=== PATIENT | male | born 1935 | race African-American/Black ===

== ENCOUNTER 2017-09-13 15:32 | Inpatient (IN) | payer MEDICARE ==
[2017-09-13] VITALS (15 sets, daily range): BP systolic 50–123; BP diastolic 29–77
[~2017-09-13] VITALS: Ht 172.7 cm; Wt 77.1 kg
[2017-09-13] MEDS ORDERED: Pantoprazole 80 MG in NS 250 ML IV ONE (15:45)
[2017-09-13] MEDS ORDERED: Pantoprazole Inj IVP ONE (15:45)
--- NOTE | 2017-09-13 15:45 | Emergency Room Report ---
History of Present Illness General Chief Complaint: Dyspnea/Respdistress Source: Medical Record, EMS Present Illness HPI All HPI from paperwork SNF Alleging hypoxia to 80s, and coffee-ground emesis Past medical history: Very significant list, includes anemia of chronic disease and diabetes, CKD, dementia, urinary retention List of medications include aspirin and no other a.c. HPI otherwise limited Recent admission in [facility] for urosepsis Allergies: Coded Allergies: LISINOPRIL (Verified Allergy, Unknown, 09/13/17) [id number] REDUCTASE INHIBITOR (Verified Allergy, Unknown, 09/13/17) Patient History Past Medical History: other - see hpi Past Surgical History: unable to obtain Pertinent Family History: unable to obtain Social History: Denies: smoking, alcohol use, drug use Immunizations: UTD Reviewed Nursing Documentation: PMH: Agreed, PSxH: Agreed Review of Systems All Other Systems: negative except mentioned in HPI Physical Exam Vital Signs Date Time Temp Pulse Resp B/P (MAP) Pulse Ox O2 Delivery O2 Flow Rate FiO2 09/13/17 15:24 96.4 76 28 90/28 96 Non-Rebreather 15.0 Sp02 EP Interpretation: reviewed, normal General Appearance: normal inspection, well appearing, no apparent distress, alert, GCS 15, non-toxic, other - head contorted to right side, right facial droop, coffee ground emesis oozing from right side of mouth Head: normocephalic, atraumatic Eyes: bilateral eye PERRL, bilateral eye EOMI ENT: normal ENT inspection, hearing grossly normal, normal pharynx, no angioedema, normal voice, TMs + canals normal, uvula midline, moist mucus membranes Neck: normal inspection, full range of motion, supple, thyroid normal, no meningismus, no bony tend Respiratory: normal inspection, lungs clear, normal breath sounds, no rhonchi, no respiratory distress, no retraction, no accessory muscle use, no wheezing, speaking full sentences Cardiovascular #1: regular rate, rhythm, no edema, no JVD, normal capillary refill Gastrointestinal: normal inspection, normal bowel sounds, non tender, soft, no mass, no peritonitis, non-distended, no guarding, no hernia, no pulsatile mass Genitourinary: no CVA tenderness Musculoskeletal: normal inspection, back normal, normal range of motion, no calf tenderness, pelvis stable, Clarisse's Sign negative, other - Bilateral lower extremities contorted to right Neurologic: normal inspection, alert, oriented x3, responsive, frame catcher III-XII nml as tested, motor strength/tone normal, cerebellar normal, normal gait, speech normal Psychiatric: normal inspection, judgement/insight normal, mood/affect normal, no suicidal/homicidal ideation, no delusions Skin: normal inspection, normal color, no rash Lymphatic: normal inspection, no adenopathy Procedures Critical Care Time Critical Care Time CC time 45 min Critical care time endorsed for this patient for ?sepsis, hypotension, upper GI bleed Critical care time includes review of laboratory tests, imaging, review of EMR, review of paperwork from SNF (if available), discussion with patient and family (if available), review of code status/POLS (if available). Critical care time also likely includes assessment of fluid status, stabilization of vital signs, selection and dosing of appropriate antibiotics, selection and dosing of Aspirin/Plavix/Heparin/Lovenox, discussion with PMD/ attending hospitalist/java tech. Critical care time does not include any procedures which are documented elsewhere in this EMR. Central Line Central Line : Consent: Emergent Central Line Lumen: triple Maximal Sterile Barrier Tech: yes cap, yes mask, yes sterile gown, yes sterile gloves, yes large sterile sheet, yes hand hygiene, yes chlorhexidine prep No Max Barrier Tech Because: emergency insertion Central Line Postion: internal jugular (L) Complications: none Central Line Post Position: sutured, good blood return, position confirmed w / CXR Attempts: One Patient Tolerated: Well Complications: None Intubation Intubation : Consent: Emergent Intubation Method: orotracheal Tube Size (cm): 7.5 Medications: Etomidate, Rocuronium Breath Sounds after Intubation: equal Intubation Complications: vomited Post Intubation Xray: Yes Attempts: One Patient Tolerated: Well Complications: None Medical Decision Making Diagnostic Impression: Primary Impression: Coffee ground emesis Additional Impressions: Hypotension Qualified Codes: I95.9 - Hypotension, unspecified Upper GI bleed Sepsis Qualified Codes: A41.9 - Sepsis, unspecified organism MOJGAN (acute kidney injury) CKD (chronic kidney disease) Qualified Codes: N18.9 - Chronic kidney disease, unspecified ER Course 82-year-old male with continued coffee-ground emesis and hypotension in the ER not responding to fluid bolus Was intubated for airway protection hemoglobin stable, INR is ganesh Mild MOJGAN on CKD 1.5L Fluid bolus given how patient developed crackles on exam, unknown EF, concern for fluid overload so IVF bolus was discontinued, and central line placed for continued hypotension, levophed pressors started Patient also given Protonix bolus and started on protonic prescription for upper GI bleed Questionable sepsis given leukopenia, hypotension, and chest x-ray read by stat rat for bilateral infiltrates, right greater than left; blood cultures pending, empiric antibiotics given Possible the patient also aspirated ICU admission to Dr Springer at 7pm Angel approved for admission here, please see my call to Angel Woodall with authorization number EKG Diagnostic Results Rate: normal Rhythm: NSR ST Segments: no acute changes ASA given to the pt in ED: No Rhythm Strip Diag. Results EP Interpretation: yes Rate: 76 Rhythm: NSR, no PVC's, no ectopy Chest X-Ray Diagnostic Results Chest X-Ray Diagnostic Results : Chest X-Ray Ordered: Yes # of Views/Limited/Complete: 1 View Indication: Other - Hypoxia EP Interpretation: Yes PA Xray: Interpretation reviewed Impression: Other - Right sided infiltrate Electronically Signed by: Dr Herson Farrell MD Last Vital Signs Date Time Temp Pulse Resp B/P (MAP) Pulse Ox O2 Delivery O2 Flow Rate FiO2 09/13/17 15:24 96.4 76 28 90/28 96 Non-Rebreather 15.0 Status: improved Disposition: ADMITTED INPATIENT Condition: Critical HERSON FARRELL M.D. Sep 13, 2017 15:44
[2017-09-13] MEDS ORDERED: Pantoprazole Inj ONE (16:26)
[2017-09-13 16:31] LABS: BASOPHILS % (AUTO) 1.2 % (0.0-2.0); EOSINOPHILS % (AUTO) 0.7 % (0.0-3.0); HEMATOCRIT 31.7 % (42.0-52.0); MEAN CORPUSCULAR VOLUME 100 FL (80-99); MONOCYTES % (AUTO) 3.1 % (1.0-10.0); PLATELET COUNT 231 K/UL (150-450); RED BLOOD COUNT 3.19 M/UL (4.70-6.10); RED CELL DISTRIBUTION WIDTH 15.9 % (11.6-14.8); WHITE BLOOD COUNT 3.1 K/UL (4.8-10.8)
[2017-09-13 16:36] LABS: INR 1.1 (0.9-1.1)
[2017-09-13] MEDS ORDERED: EZETIMIBE10 MG PO (16:56)
[2017-09-13] MEDS ORDERED: CEFAZOLIN2 GM/100 M IV (16:56)
[2017-09-13] MEDS ORDERED: LUMIGAN2.5 ML BOTH EYES (16:56)
[2017-09-13] MEDS ORDERED: AMLODIPINE BESY10 MG ORAL (16:56)
[2017-09-13] MEDS ORDERED: FUROSEMIDE40 MG ORAL (16:56)
[2017-09-13] MEDS ORDERED: MIRTAZAPINE7.5 MG ORAL (16:56)
[2017-09-13] MEDS ORDERED: ASPIR 8181 MG ORAL (16:56)
[2017-09-13] MEDS ORDERED: HYDRALAZINE HCL50 MG ORAL (16:56)
[2017-09-13] MEDS ORDERED: TUSSIN100 MG/51 PO (16:56)
[2017-09-13] MEDS ORDERED: Sodium Chloride 500ML 500 ML IV ONE (17:00)
[2017-09-13 17:07] LABS: ANION GAP 8 mmol/L (5-15); BLOOD UREA NITROGEN 51 mg/dL (7-18); CALCIUM 7.9 MG/DL (8.5-10.1); CARBON DIOXIDE 28 MMOL/L (21-32); CHLORIDE 117 MMOL/L (98-107); POTASSIUM 3.8 MMOL/L (3.5-5.1); SODIUM 153 MMOL/L (136-145)
[2017-09-13 17:35] LABS: ALANINE AMINOTRANSFERASE 34 U/L (12-78); ALBUMIN 1.8 G/DL (3.4-5.0); ALBUMIN/GLOBULIN RATIO 0.5 (1.0-2.7); ALKALINE PHOSPHATASE 84 U/L (46-116); ASPARTATE AMINO TRANSFERASE 32 U/L (15-37); BILIRUBIN,TOTAL 0.3 MG/DL (0.2-1.0); CKMB 6.2 NG/ML (0.0-3.6); CREATINE KINASE 109 U/L (26-308)
[2017-09-13] MEDS ORDERED: Zemuron 50mg/5ml Inj IV ONE ×2 (17:45→22:44)
[2017-09-13] MEDS ORDERED: Etomidate 40mg/20ml Inj IV ONE ×2 (17:45→22:44)
[2017-09-13] MEDS ORDERED: D5W 275 ML ONE (18:00)
[2017-09-13] MEDS ORDERED: Levophed 4mg/4mL Inj IV ONE ×2 (18:00→23:57)
[2017-09-13] MEDS ORDERED: Tubing IV Cassette IV ONE (19:32)
--- NOTE | 2017-09-13 20:28 | History & Physical ---
History and Physical History & Physicial 82 year old male with dementia presents with GIB, requiring intubation. Patient with unknown heart status. patient with low hemoglobin. Care discussed with ER MD and patient currently on the ventilator. Patient with hypotension with concern for sepsis. Patient given antibiotics empiric and cultures obtained. PMH dementia CKD hypertension MEDS/ALLERGIES noted PHYSICAL WDWN NAD coarse breath sounds [id number] without MRG reduced bowel sounds nontender no CCE reduced LOC Labs Test 09/13/17 16:00 09/13/17 20:15 White Blood Count 3.1 K/UL (4.8-10.8) Red Blood Count 3.19 M/UL (4.70-6.10) Hemoglobin 10.0 G/DL (14.2-18.0) Hematocrit 31.7 % (42.0-52.0) Mean Corpuscular Volume 100 FL (80-99) Mean Corpuscular Hemoglobin 31.3 PG (27.0-31.0) Mean Corpuscular Hemoglobin Concent 31.4 G/DL (32.0-36.0) Red Cell Distribution Width 15.9 % (11.6-14.8) Platelet Count 231 K/UL (150-450) Mean Platelet Volume 9.6 FL (6.5-10.1) Neutrophils (%) (Auto) 71.0 % (45.0-75.0) Lymphocytes (%) (Auto) 24.0 % (20.0-45.0) Monocytes (%) (Auto) 3.1 % (1.0-10.0) Eosinophils (%) (Auto) 0.7 % (0.0-3.0) Basophils (%) (Auto) 1.2 % (0.0-2.0) Prothrombin Time 11.3 SEC (9.30-11.50) Prothromb Time International Ratio 1.1 (0.9-1.1) Sodium Level 153 MMOL/L (136-145) Potassium Level 3.8 MMOL/L (3.5-5.1) Chloride Level 117 MMOL/L (98-107) Carbon Dioxide Level 28 MMOL/L (21-32) Anion Gap 8 mmol/L (5-15) Blood Urea Nitrogen 51 mg/dL (7-18) Creatinine 2.0 MG/DL (0.55-1.30) Estimat Glomerular Filtration Rate mL/min (>60) Glucose Level 153 MG/DL (74-106) Lactic Acid Level 3.10 mmol/L (0.66-2.22) Calcium Level 7.9 MG/DL (8.5-10.1) Total Bilirubin 0.3 MG/DL (0.2-1.0) Aspartate Amino Transf (AST/SGOT) 32 U/L (15-37) Alanine Aminotransferase (ALT/SGPT) 34 U/L (12-78) Alkaline Phosphatase 84 U/L (46-116) Total Creatine Kinase 109 U/L (26-308) Creatine Kinase MB 6.2 NG/ML (0.0-3.6) Creatine Kinase MB Relative Index 5.6 Troponin I 0.012 ng/mL (0.000-0.056) Total Protein 5.6 G/DL (6.4-8.2) Albumin 1.8 G/DL (3.4-5.0) Globulin 3.8 g/dL Albumin/Globulin Ratio 0.5 (1.0-2.7) IMPRESSION GIB respiratory failure pneumonia CKD anemia hypernatremia hypotension possible sepsis PLAN monitor protonix IV GI evaluation IV antibiotics vent support and monitor ABG monitor and avoid excessive hydration guarded ÁNGEL LAO Sep 13, 2017 20:28
[2017-09-13] MEDS ORDERED: NS 275 ML ONE (23:57)
[2017-09-14] VITALS (24 sets, daily range): BP systolic 78–168; BP diastolic 41–111
[2017-09-14] MEDS ORDERED: DOPamine 400mg/250ml 250 ML IV SCH (00:30)
[2017-09-14 00:35] LABS: HEMATOCRIT 28.6 % (42.0-52.0); MEAN CORPUSCULAR VOLUME 98 FL (80-99); PLATELET COUNT 208 K/UL (150-450); RED BLOOD COUNT 2.92 M/UL (4.70-6.10); RED CELL DISTRIBUTION WIDTH 15.4 % (11.6-14.8)
[2017-09-14 00:46] LABS: WHITE BLOOD COUNT 1.1 K/UL (4.8-10.8)
[2017-09-14] MEDS ORDERED: NS 275 ML ONE (04:26)
[2017-09-14] MEDS ORDERED: Levophed 4mg/4mL Inj IV ONE ×3 (04:26→14:36)
[2017-09-14] MEDS ORDERED: Phenylephrine 100 MG in NS 240 ML IV SCH (08:15)
[2017-09-14] MEDS ORDERED: Phenylephrine 10mg/ml 5ml vial IV ONE (08:17)
[2017-09-14] MEDS ORDERED: PHENYLEPHRINE IV SCH (09:00)
[2017-09-14] MEDS ORDERED: D5W IV SCH (09:00)
[2017-09-14] MEDS ORDERED: Phenylephrine 100 MG in D5W 240 ML IV SCH (09:00)
--- NOTE | 2017-09-14 09:00 | General Progress Note ---
Assessment/Plan Assessment/Plan IMPRESSION GIB respiratory failure pneumonia CKD anemia hypernatremia hypotension possible sepsis leukopenia PLAN monitor HH protonix IV GI evaluation IV antibiotics ID evaluation heme evaluation vent support and monitor ABG transfer to [place] when stable monitor and avoid excessive hydration guarded Subjective Allergies: Coded Allergies: LISINOPRIL (Verified Allergy, Unknown, 09/13/17) [id number] REDUCTASE INHIBITOR (Verified Allergy, Unknown, 09/13/17) Subjective care noted remains on the ventilator morning labs noted Objective Last 24 Hour Vital Signs Date Time Temp Pulse Resp B/P (MAP) Pulse Ox O2 Delivery O2 Flow Rate FiO2 09/14/17 07:58 78/48 09/14/17 07:53 83/36 09/14/17 07:48 88/49 09/14/17 07:43 86/54 09/14/17 07:38 72/49 09/14/17 07:33 78/52 09/14/17 07:28 82/52 09/14/17 07:23 94/48 09/14/17 07:18 101.2 109 40 09/14/17 07:18 153/104 09/14/17 07:08 139/98 09/14/17 07:03 122/89 09/14/17 06:58 103/22 09/14/17 06:53 81/57 09/14/17 06:53 81/57 09/14/17 06:51 114 37 168/87 100 Mechanical Ventilator 100 09/14/17 06:48 168/87 09/14/17 06:48 168/87 09/14/17 06:35 122 40 80 09/14/17 06:33 177/149 09/14/17 06:33 177/149 09/14/17 06:19 129 39 154/99 100 Mechanical Ventilator 100 09/14/17 06:18 154/99 09/14/17 06:18 154/99 09/14/17 06:03 158/96 09/14/17 06:03 158/96 09/14/17 05:48 149/90 09/14/17 05:48 149/90 09/14/17 05:33 98/57 09/14/17 05:33 98/57 09/14/17 05:31 101.2 128 38 78/41 100 Mechanical Ventilator 100 09/14/17 05:30 135 38 80 09/14/17 05:18 78/41 09/14/17 05:18 78/41 09/14/17 05:03 100/46 09/14/17 05:03 100/46 09/14/17 04:55 101.2 131 38 09/14/17 04:48 95/51 09/14/17 04:48 95/51 09/14/17 04:40 91/49 09/14/17 04:33 91/49 09/14/17 04:33 91/49 09/14/17 04:24 100.5 132 34 93/64 100 Mechanical Ventilator 100 09/14/17 04:23 100.5 134 34 09/14/17 04:18 93/64 09/14/17 04:18 93/64 09/14/17 04:03 109/57 09/14/17 04:03 109/57 09/14/17 03:46 90/46 09/14/17 03:46 90/46 09/14/17 03:40 135 38 90/46 10 Mechanical Ventilator 100 09/14/17 03:33 92/51 09/14/17 03:33 92/51 09/14/17 03:18 84/45 09/14/17 03:18 84/45 09/14/17 03:03 94/54 09/14/17 03:03 94/54 09/14/17 02:55 124 32 91/54 99 Mechanical Ventilator 100 09/14/17 02:48 91/54 09/14/17 02:48 91/54 09/14/17 02:47 128 37 80 09/14/17 02:33 109/48 09/14/17 02:33 109/48 09/14/17 02:18 92/58 09/14/17 02:18 92/58 09/14/17 02:12 100.8 116 30 09/14/17 02:03 85/48 09/14/17 02:03 85/48 09/14/17 02:01 100.9 111 30 09/14/17 01:55 100.9 111 30 87/52 100 Mechanical Ventilator 100 09/14/17 01:48 87/52 09/14/17 01:48 87/52 09/14/17 01:33 97/44 09/14/17 01:33 97/44 09/14/17 01:25 113 33 80 09/14/17 01:18 103/50 09/14/17 01:18 103/50 09/14/17 01:06 107 30 90/47 100 Mechanical Ventilator 100 09/14/17 01:03 90/47 09/14/17 01:03 90/47 09/14/17 00:48 100/48 09/14/17 00:48 100/48 09/14/17 00:33 82/51 09/14/17 00:33 82/51 09/14/17 00:19 73/41 09/14/17 00:14 74/43 09/14/17 00:09 79/45 09/14/17 00:06 107 28 86/48 99 Mechanical Ventilator 100 09/14/17 00:04 86/48 09/14/17 00:04 86/48 09/13/17 23:45 90/52 09/13/17 23:30 91/51 09/13/17 23:29 104 31 81/48 99 Mechanical Ventilator 100 09/13/17 23:24 81/48 09/13/17 23:21 107 31 80 09/13/17 23:09 94/48 09/13/17 22:54 91/48 09/13/17 22:51 106 30 94/46 99 Mechanical Ventilator 100 09/13/17 22:38 95/49 09/13/17 22:23 91/53 09/13/17 22:15 104 28 91/53 98 Mechanical Ventilator 100 09/13/17 22:08 99/55 09/13/17 21:58 97/50 09/13/17 21:48 95/48 09/13/17 21:43 98/55 09/13/17 21:38 97/47 09/13/17 21:33 101/52 09/13/17 21:29 101 23 82/55 95 Mechanical Ventilator 100 09/13/17 21:28 82/55 09/13/17 21:23 92/52 09/13/17 21:18 99/49 09/13/17 21:13 93/47 09/13/17 21:08 87/47 09/13/17 21:03 83/46 09/13/17 21:00 95.4 100 23 83/46 95 Mechanical Ventilator 100 09/13/17 20:58 73/41 09/13/17 20:53 79/38 09/13/17 20:43 76/46 09/13/17 20:38 102 22 80 09/13/17 20:33 79/46 09/13/17 20:30 96 20 79/46 97 Mechanical Ventilator 100 09/13/17 18:50 103 20 100 09/13/17 18:30 95.4 101 16 121/58 98 Mechanical Ventilator 100 09/13/17 18:15 103 16 123/62 97 Mechanical Ventilator 100 09/13/17 18:10 100 09/13/17 18:10 11 14 100 09/13/17 18:05 50/29 09/13/17 18:00 73 32 50/29 83 Non-Rebreather 09/13/17 17:45 75 36 79/43 90 Nasal Cannula 3.0 09/13/17 17:15 73 32 68/48 92 Nasal Cannula 3.0 09/13/17 17:00 72 32 50/29 92 Nasal Cannula 3.0 09/13/17 16:45 69 26 75/49 92 Nasal Cannula 3.0 09/13/17 16:30 71 24 87/38 100 Nasal Cannula 3.0 09/13/17 16:00 94.8 70 28 100/77 100 Nasal Cannula 3.0 09/13/17 15:35 76 28 Nasal Cannula 3.0 09/13/17 15:24 96.4 76 28 90/28 96 Non-Rebreather 15.0 Intake and Output 09/13/17 09/14/17 19:00 07:00 Intake Total 500 ml 250 ml Balance 500 ml 250 ml Intake Oral 0 ml IV Total 500 ml Blood Product 250 ml Laboratory Tests 09/13/17 16:00: White Blood Count 3.1L, Red Blood Count 3.19L, Hemoglobin 10.0L, Hematocrit 31.7L, Mean Corpuscular Volume 100H, Mean Corpuscular Hemoglobin 31.3H, Mean Corpuscular Hemoglobin Concent 31.4L, Red Cell Distribution Width 15.9H, Platelet Count 231, Mean Platelet Volume 9.6, Neutrophils (%) (Auto) 71.0, Lymphocytes (%) (Auto) 24.0, Monocytes (%) (Auto) 3.1, Eosinophils (%) (Auto) 0.7, Basophils (%) (Auto) 1.2, Prothrombin Time 11.3, Prothromb Time International Ratio 1.1, Sodium Level 153H, Potassium Level 3.8, Chloride Level 117H, Carbon Dioxide Level 28, Anion Gap 8, Blood Urea Nitrogen 51H, Creatinine 2.0H, Estimat Glomerular Filtration Rate , Glucose Level 153H, Lactic Acid Level 3.10H, Calcium Level 7.9L, Total Bilirubin 0.3, Aspartate Amino Transf ( AST/SGOT) 32, Alanine Aminotransferase (ALT/SGPT) 34, Alkaline Phosphatase 84, Total Creatine Kinase 109, Creatine Kinase MB 6.2H, Creatine Kinase MB Relative Index 5.6, Troponin I 0.012, Total Protein 5.6L, Albumin 1.8L, Globulin 3.8, Albumin/Globulin Ratio 0.5L 09/13/17 20:15: Lactic Acid Level 2.70H 09/14/17 00:15: White Blood Count 1.1#*L, Red Blood Count 2.92L, Hemoglobin 9.0L, Hematocrit 28.6L, Mean Corpuscular Volume 98, Mean Corpuscular Hemoglobin 30.9, Mean Corpuscular Hemoglobin Concent 31.5L, Red Cell Distribution Width 15.4H, Platelet Count 208, Mean Platelet Volume 9.8, Neutrophils (%) (Auto) , Lymphocytes (%) (Auto) , Monocytes (%) (Auto) , Eosinophils (%) (Auto) , Basophils (%) (Auto) 09/14/17 01:43: Arterial Blood pH 7.375, Arterial Blood Partial Pressure CO2 47.0H, Arterial Blood Partial Pressure O2 86.3, Arterial Blood HCO3 26.9H, Arterial Blood Oxygen Saturation 95.6, Arterial Blood Base Excess 1.3, Tevin Test Positive Height (Feet): 5 Height (Inches): 10.00 Weight (Pounds): 165 Objective WDWN ETT coarse breath sounds bilaterally without rhonchi or wheeze [id number] without MRG NABS nontender no HSM no CC withdrawn ÁNGEL LAO Sep 14, 2017 09:00
--- NOTE | 2017-09-14 09:25 | Diagnostic Imaging Report ---
Indication: Reason For Exam: SOB Technique: One view of the chest Comparison: none Findings: There is a right arm PICC, tip projected at the level of the mid superior vena cava. Infiltrates are seen throughout the right lung. There is a right-sided pleural effusion. The left lung and pleural space are grossly clear. Impression: Right-sided infiltrates. Small right pleural effusion
--- NOTE | 2017-09-14 11:20 | Diagnostic Imaging Report ---
Indication: Status post intubation and central line placement Technique: One view of the chest Comparison: One hours earlier Findings: Interim endotracheal intubation, endotracheal tube tip in good position approximately 4 cm above the joi. Interim placement of a left jugular central venous catheter, tip of which projects at the level of the innominate venous confluence. No pneumothorax. Right arm PICC remains. Infiltrates throughout the right lung persist., Over one hour there is also some left perihilar congestion Probable small right pleural effusion persists. The heart size is normal Impression: Satisfactory endotracheal intubation Satisfactory left jugular central venous catheter placement. Stable right lung diffuse infiltrates and right-sided pleural effusion. Left perihilar congestion also demonstrated. This agrees with the preliminary interpretation [facility].
[2017-09-14 12:56] LABS: EOSINOPHILS % (AUTO) 0.3 % (0.0-3.0); HEMATOCRIT 32.3 % (42.0-52.0); HEMOGLOBIN 10.5 G/DL (14.2-18.0); LYMPHOCYTES % (AUTO) 19.8 % (20.0-45.0); MEAN CORPUSCULAR VOLUME 95 FL (80-99); MONOCYTES % (AUTO) 12.3 % (1.0-10.0); NEUTROPHILS % (AUTO) 65.5 % (45.0-75.0); PLATELET COUNT 202 K/UL (150-450); RED BLOOD COUNT 3.39 M/UL (4.70-6.10); RED CELL DISTRIBUTION WIDTH 14.7 % (11.6-14.8); WHITE BLOOD COUNT 4.5 K/UL (4.8-10.8)
--- NOTE | 2017-09-14 21:15 | Consultation ---
DATE OF CONSULTATION: 09/14/2017 GASTROENTEROLOGY CONSULTATION CONSULTING PHYSICIAN: Jovita Anthony M.D. CHIEF COMPLAINT: I was asked to see this patient by Dr. Huang Springer for evaluation of gastrointestinal bleeding. HISTORY OF PRESENT ILLNESS: The patient is a debilitated 82-year-old man who was seen in the emergency room due to respiratory failure and possible gastrointestinal bleeding. The patient has advanced dementia. Upon admission to the emergency room, required intubation. Subsequently, the patient was noted to be in septic shock and has been placed on double pressors to maintain his blood pressure. During the course of his emergency room evaluation, the patient had some dark type of emesis and this is the cause of his consultation. Bowel movements have been mucoid, loose and dark, but not quite melenic. The patient is not able to provide any history and most of the history is only available from the chart. There is no family at bedside. PAST MEDICAL HISTORY: Remarkable for a history of dementia, chronic kidney disease, and hypertension. MEDICATIONS: See chart list for details. ALLERGIES: Listed as lisinopril and statins. SOCIAL HISTORY: Unavailable and unobtainable. FAMILY HISTORY: Unavailable and unobtainable. REVIEW OF SYSTEMS: Unavailable and unobtainable. PHYSICAL EXAMINATION: GENERAL: This is an elderly man, on a ventilator, seen in the emergency room, on two pressors for blood pressure control. HEENT: Normocephalic and atraumatic. Sclerae could not be evaluated. The patient is intubated. CHEST: With coarse breath sounds. CARDIOVASCULAR: Revealed a regular rate. ABDOMEN: Soft. EXTREMITIES: Some contractures. NEUROLOGIC: Notable for obtundation. LABORATORY DATA: Reviewed. The patient's initial hematocrit was 31.7 and the second one after about 8 hours was 28.6, white count has gone from 3.1 to 12.1 total. He has an elevated creatinine of 2.0, which has not been repeated. His lactic acid is 3.1 and now repeat is 2.7. He has some degree of hypernatremia of 153. Albumin is down to 1.8. ASSESSMENT: This patient presents with respiratory failure and septic shock. There may be a component of gastrointestinal bleeding as observed by the nursing staff with dark emesis. However, given his hematocrit I would suspect that the latter is due to septic shock and not due to hypovolemic shock from gastrointestinal bleeding. As such, focus at this time should be made to IV fluids and broad-spectrum antibiotics. I have sent the stool collected from the diapers to the lab for occult blood and also Clostridium difficile evaluation. I would add Flagyl to the antibiotic regimen in the meantime. The patient is not stable at this time and would not likely benefit from a gastrointestinal endoscopy since gastrointestinal bleeding is not his primary issue. However, I will monitor and follow the patient closely with you and can perform the examination when necessary. Proton pump inhibitor should be given. The patient is obviously in critical status. RECOMMENDATIONS: Per above discussion and per orders written in the chart. Thank you for asking me to participate in the care of this patient. Jovita Anthony M.D. DR: Ashvin JOB#: [id number] CC: MAXI
[2017-09-14] MEDS: Phenylephrine 50 MG in D5W 245 ML IV SCH (21:30)
[2017-09-14] MEDS: Piperacillin/Tazobactam 3.375 GM in NS 110 ML IVPB SCH (22:30)
[2017-09-14] MEDS ORDERED: Vancomycin 1250mg/D5W 250ml IVPB SCH (23:00)
[2017-09-15] VITALS (48 sets, daily range): BP systolic 91–133; BP diastolic 39–76
[2017-09-15] MEDS: Piperacillin/Tazobactam 3.375 GM in NS 110 ML IVPB SCH ×3 (05:52→21:33)
[2017-09-15 06:12] LABS: BASOPHILS % (AUTO) 0.6 % (0.0-2.0); HEMATOCRIT 28.7 % (42.0-52.0); HEMOGLOBIN 9.5 G/DL (14.2-18.0); LYMPHOCYTES % (AUTO) 13.4 % (20.0-45.0); MEAN CORPUSCULAR VOLUME 96 FL (80-99); MONOCYTES % (AUTO) 4.6 % (1.0-10.0); NEUTROPHILS % (AUTO) 80.4 % (45.0-75.0); PLATELET COUNT 179 K/UL (150-450); RED BLOOD COUNT 2.99 M/UL (4.70-6.10); RED CELL DISTRIBUTION WIDTH 15.2 % (11.6-14.8)
[2017-09-15 06:27] LABS: ALANINE AMINOTRANSFERASE 8 U/L (12-78); ALBUMIN 1.2 G/DL (3.4-5.0); ALBUMIN/GLOBULIN RATIO 0.3 (1.0-2.7); ALKALINE PHOSPHATASE 66 U/L (46-116); ANION GAP 8 mmol/L (5-15); ASPARTATE AMINO TRANSFERASE 46 U/L (15-37); BILIRUBIN,TOTAL 0.4 MG/DL (0.2-1.0); BLOOD UREA NITROGEN 65 mg/dL (7-18); CALCIUM 6.5 MG/DL (8.5-10.1); CARBON DIOXIDE 25 MMOL/L (21-32); CHLORIDE 116 MMOL/L (98-107); CREATINE KINASE 440 U/L (26-308); CREATININE 3.3 MG/DL (0.55-1.30); SODIUM 149 MMOL/L (136-145)
[2017-09-15] MEDS ORDERED: Levophed 4mg/4mL Inj IV ONE (06:57)
--- NOTE | 2017-09-15 08:18 | Anethesia Preoperative Eval ---
Anesthesia Pre-op PMH/ROS General Date of Evaluation: Sep 15, 2017 Time of Evaluation: 08:10 Anesthesiologist: Savannah ASA Score: ASA 4 Mallampati Score Class I : Soft palate, uvula, fauces, pillars visible Class II: Soft palate, uvula, fauces visible Class III: Soft palate, base of uvula visible Class IV: Only hard plate visible Mallampati Classification: Class II Surgeon: Raj Diagnosis: GI bleed Surgical Procedure: EGD, PEG Allergies: Coded Allergies: LISINOPRIL (Verified Allergy, Unknown, 09/13/17) [id number]-PTO-COJ REDUCTASE INHIBITOR (Verified Allergy, Unknown, 09/13/17) Past Medical History Cardiovascular: Reports: other - Bradycardia Pulmonary: Reports: other - Respiratory failure Gastrointestinal/Genitourinary: Reports: CRI Neurologic/Psychiatric: Reports: dementia Hematology/Immune: Reports: anemia PMH Narrative: Anemia, bradycardia, dementia, CRI PSxH Narrative: Unknown Anesthesia Pre-op Phys. Exam Physician Exam Last Vital Signs Date Time Temp Pulse Resp B/P (MAP) Pulse Ox O2 Delivery O2 Flow Rate FiO2 09/15/17 07:49 50 09/15/17 07:19 104 34 09/15/17 07:03 107/53 09/15/17 05:30 100 Mechanical Ventilator 09/15/17 04:00 98.7 09/14/17 18:35 3.0 Cardiovascular: other - Patient on pressors Respiratory: other - Patient ventilated Airway Exam Mallampati Score: Class II Anesthesia Pre-op A/P Labs Hematology Test 09/14/17 12:23 09/15/17 05:00 White Blood Count 4.5 K/UL (4.8-10.8) #L 7.0 K/UL (4.8-10.8) # Red Blood Count 3.39 M/UL (4.70-6.10) L 2.99 M/UL (4.70-6.10) L Hemoglobin 10.5 G/DL (14.2-18.0) L 9.5 G/DL (14.2-18.0) L Hematocrit 32.3 % (42.0-52.0) L 28.7 % (42.0-52.0) L Mean Corpuscular Volume 95 FL (80-99) 96 FL (80-99) Mean Corpuscular Hemoglobin 31.0 PG (27.0-31.0) 31.7 PG (27.0-31.0) H Mean Corpuscular Hemoglobin Concent 32.5 G/DL (32.0-36.0) 33.0 G/DL (32.0-36.0) Red Cell Distribution Width 14.7 % (11.6-14.8) 15.2 % (11.6-14.8) H Platelet Count 202 K/UL (150-450) 179 K/UL (150-450) Mean Platelet Volume 10.0 FL (6.5-10.1) 9.1 FL (6.5-10.1) Neutrophils (%) (Auto) 65.5 % (45.0-75.0) 80.4 % (45.0-75.0) H Lymphocytes (%) (Auto) 19.8 % (20.0-45.0) L 13.4 % (20.0-45.0) L Monocytes (%) (Auto) 12.3 % (1.0-10.0) H 4.6 % (1.0-10.0) Eosinophils (%) (Auto) 0.3 % (0.0-3.0) 1.0 % (0.0-3.0) Basophils (%) (Auto) 2.0 % (0.0-2.0) 0.6 % (0.0-2.0) Chemistry Test 09/15/17 05:00 Sodium Level 149 MMOL/L (136-145) H Potassium Level 4.0 MMOL/L (3.5-5.1) Chloride Level 116 MMOL/L (98-107) H Carbon Dioxide Level 25 MMOL/L (21-32) Anion Gap 8 mmol/L (5-15) Blood Urea Nitrogen 65 mg/dL (7-18) H Creatinine 3.3 MG/DL (0.55-1.30) H Estimat Glomerular Filtration Rate mL/min (>60) Glucose Level 77 MG/DL (74-106) Calcium Level 6.5 MG/DL (8.5-10.1) L Total Bilirubin 0.4 MG/DL (0.2-1.0) Aspartate Amino Transf (AST/SGOT) 46 U/L (15-37) H Alanine Aminotransferase (ALT/SGPT) 8 U/L (12-78) L Alkaline Phosphatase 66 U/L (46-116) Total Creatine Kinase 440 U/L (26-308) H Troponin I 0.068 ng/mL (0.000-0.056) Total Protein 4.7 G/DL (6.4-8.2) L Albumin 1.2 G/DL (3.4-5.0) L Globulin 3.5 g/dL Albumin/Globulin Ratio 0.3 (1.0-2.7) L Risk Assessment & Plan Assessment: Multiple medical problems including pneumonia and sepsis, intubated, on pressors now for EGD, PEG for possible GI bleed Plan: GA, minimal sedation Status Change Before Surgery: No Pre-Antibiotics Drug: None RONNELL RAMIRES M.D. Sep 15, 2017 08:18
[2017-09-15] MEDS ORDERED: NS 500ML IV ONE (08:20)
--- NOTE | 2017-09-15 08:27 | Pre-Procedure Note/Attestation ---
Pre-Procedure Note/Attestation Complete Prior to Procedure Planned Procedure: not applicable Procedure Narrative: egd Indications for Procedure Pre-Operative Diagnosis: UGIB Attestation I attest that I discussed the nature of the procedure; its benefits; risks and complications; and alternatives (and the risks and benefits of such alternatives ), prior to the procedure, with the patient (or the patient's legal outside medical sales representative). I attest that, if there was a reasonable possibility of needing a blood transfusion, the patient (or the patient's legal outside medical sales representative) was given the [facility] standardized written summary, pursuant to the [place] Nikole Blood Safety Act ([place] Health and Safety Code # 1645, as amended). I attest that I re-evaluated the patient just prior to the surgery and that there has been no change in the patient's H&P, except as documented below: SAJI FREY Sep 15, 2017 08:27
[2017-09-15] MEDS: Pantoprazole Inj IVP SCH (08:29)
--- NOTE | 2017-09-15 08:52 | Immediate Post-Op Evaluation ---
Immediate Post-Op Evalulation Immediate Post-Op Evalulation Procedure: EGD Date of Evaluation: Sep 15, 2017 Time of Evaluation: 09:00 IV Fluids: 10 Blood Pressure Systolic: 100 Blood Pressure Diastolic: 44 Pulse Rate: 76 O2 Sat by Pulse Oximetry: 100 Pain Score (1-10): 0 Nausea: No Vomiting: No Complications No complication Patient Status: reacts, ventilated, none Hydration Status: adequate Drug: None RONNELL RAMIRES M.D. Sep 15, 2017 08:52
--- NOTE | 2017-09-15 09:10 | General Progress Note ---
Assessment/Plan Assessment/Plan IMPRESSION GIB respiratory failure pneumonia CKD anemia hypernatremia hypotension possible sepsis leukopenia PLAN monitor HH protonix IV GI evaluation appreciated IV antibiotics ID evaluation- called heme evaluation- wbc now normal vent support and monitor ABG transfer to [place] when stable and off levophed monitor and avoid excessive hydration guarded Subjective Allergies: Coded Allergies: LISINOPRIL (Verified Allergy, Unknown, 09/13/17) [id number] REDUCTASE INHIBITOR (Verified Allergy, Unknown, 09/13/17) Subjective care noted remains on the ventilator morning labs noted for EGD this am Objective Last 24 Hour Vital Signs Date Time Temp Pulse Resp B/P (MAP) Pulse Ox O2 Delivery O2 Flow Rate FiO2 09/15/17 08:55 75 31 50 118 08:52 76 100 09/15/17 08:30 78 115/45 100 Mechanical Ventilator 50 09/15/17 08:00 98.8 84 114/56 100 Mechanical Ventilator 50 09/15/17 07:49 50 09/15/17 07:30 82 104/51 100 Mechanical Ventilator 50 09/15/17 07:19 104 34 50 18 07:03 107/53 09/15/18 07:00 83 30 119/51 100 Mechanical Ventilator 50 18 05:30 76 30 114/55 100 Mechanical Ventilator 50 09/15/17 05:00 68 29 113/43 100 Mechanical Ventilator 50 09/15/17 04:54 76 32 50 /2/18 04:30 75 22 116/45 100 Mechanical Ventilator 50 18 04:00 50 18 04:00 98.7 70 22 95/48 100 Mechanical Ventilator 50 09/15/17 04:00 70 /2/18 03:30 73 20 113/52 100 Mechanical Ventilator 50 18 03:00 73 30 101/47 100 Mechanical Ventilator 50 18 02:36 78 31 50 /2/18 02:30 67 27 104/48 100 Mechanical Ventilator 50 09/15/17 02:00 67 24 98/61 100 Mechanical Ventilator 50 18 02:00 98/61 09/15/17 01:30 64 25 115/54 100 Mechanical Ventilator 50 09/15/17 01:04 75 33 50 2/18 01:00 105/52 18 01:00 69 25 105/52 100 Mechanical Ventilator 50 09/15/17 00:30 74 29 94/42 100 Mechanical Ventilator 50 09/15/17 00:00 99.6 80 34 94/46 100 Mechanical Ventilator 50 09/15/17 00:00 94/46 09/15/17 00:00 50 09/15/17 00:00 80 09/14/17 23:30 80 33 94/43 100 Mechanical Ventilator 50 09/14/17 23:30 100/51 09/14/17 23:00 87 31 92/45 99 Mechanical Ventilator 50 09/14/17 22:42 84 29 50 09/14/17 22:30 86 31 100/54 100 Mechanical Ventilator 50 09/14/17 22:00 88 31 101/46 99 Mechanical Ventilator 50 09/14/17 21:30 91 31 118/63 97 Mechanical Ventilator 50 09/14/17 21:30 90 100/51 09/14/17 21:00 98.4 90 32 112/68 97 Mechanical Ventilator 50 09/14/17 21:00 50 09/14/17 20:45 80 32 50 09/14/17 20:45 87 32 119/55 97 Mechanical Ventilator 50 09/14/17 20:30 81 31 127/55 100 Mechanical Ventilator 50 09/14/17 20:15 97.8 75 30 102/44 99 Mechanical Ventilator 50 09/14/17 20:00 69 09/14/17 20:00 85 28 98/67 99 Mechanical Ventilator 50 09/14/17 19:34 119/52 09/14/17 19:28 71 18 116/52 100 Mechanical Ventilator 09/14/17 19:26 116/52 09/14/17 19:14 71 28 50 09/14/17 18:35 99.6 87 30 116/48 100 Mechanical Ventilator 3.0 50 66 09/14/17 18:34 116/48 09/14/17 18:00 99.6 87 30 114/46 100 Mechanical Ventilator 3.0 50 66 09/14/17 17:44 107/54 09/14/17 16:53 78 30 50 09/14/17 16:25 108/44 09/14/17 15:59 116/73 09/14/17 15:39 88 35 70 09/14/17 15:36 109/52 09/14/17 15:36 99.6 87 27 109/52 100 Mechanical Ventilator 3.0 70 09/14/17 15:08 125/65 09/14/17 15:02 114/64 09/14/17 14:37 112/82 09/14/17 14:18 125/43 09/14/17 13:49 99.6 87 39 141/111 100 Mechanical Ventilator 3.0 70 09/14/17 13:46 141/111 09/14/17 13:04 85 39 70 09/14/17 12:48 99.2 87 34 98/84 100 Mechanical Ventilator 3.0 80 09/14/17 12:41 98/84 09/14/17 12:28 85/69 09/14/17 12:00 75/45 09/14/17 11:41 80 34 80 09/14/17 11:30 103/78 09/14/17 11:00 118/49 09/14/17 10:37 88/61 09/14/17 10:37 111/64 09/14/17 10:15 99/83 09/14/17 09:55 108/80 09/14/17 09:45 102/83 09/14/17 09:40 80/63 09/14/17 09:30 105/59 09/14/17 09:25 102/55 09/14/17 09:20 77/56 Intake and Output 09/14/17 09/15/17 19:00 07:00 Intake Total 250 ml 1570.0 ml Output Total 410 ml Balance 250 ml 1160.0 ml Intake Oral 0 ml IV Total 1570.0 ml Blood Product 250 ml Output Urine Total 410 ml Laboratory Tests 09/14/17 11:54: Stool Occult Blood Positive 09/14/17 12:23: White Blood Count 4.5#L, Red Blood Count 3.39L, Hemoglobin 10.5L, Hematocrit 32.3L, Mean Corpuscular Volume 95, Mean Corpuscular Hemoglobin 31.0, Mean Corpuscular Hemoglobin Concent 32.5, Red Cell Distribution Width 14.7, Platelet Count 202, Mean Platelet Volume 10.0, Neutrophils (%) (Auto) 65.5, Lymphocytes ( %) (Auto) 19.8L, Monocytes (%) (Auto) 12.3H, Eosinophils (%) (Auto) 0.3, Basophils (%) (Auto) 2.0, Hepatitis A IgM Antibody [Pending], Hepatitis B Surface Antigen [Pending], Hepatitis B Core IgM Antibody [Pending], Hepatitis C Antibody [Pending], HIV (1&2) Antibody Rapid Negative 09/15/17 05:00: White Blood Count 7.0#, Red Blood Count 2.99L, Hemoglobin 9.5L, Hematocrit 28.7L , Mean Corpuscular Volume 96, Mean Corpuscular Hemoglobin 31.7H, Mean Corpuscular Hemoglobin Concent 33.0, Red Cell Distribution Width 15.2H, Platelet Count 179, Mean Platelet Volume 9.1, Neutrophils (%) (Auto) 80.4H, Lymphocytes (%) (Auto) 13.4L, Monocytes (%) (Auto) 4.6, Eosinophils (%) (Auto) 1.0, Basophils (%) (Auto) 0.6, Sodium Level 149H, Potassium Level 4.0, Chloride Level 116H, Carbon Dioxide Level 25, Anion Gap 8, Blood Urea Nitrogen 65H, Creatinine 3.3H, Estimat Glomerular Filtration Rate , Glucose Level 77, Calcium Level 6.5L, Total Bilirubin 0.4, Aspartate Amino Transf (AST/SGOT) 46H, Alanine Aminotransferase (ALT/SGPT) 8L, Alkaline Phosphatase 66, Total Creatine Kinase 440H, Troponin I 0.068H, Total Protein 4.7L, Albumin 1.2L, Globulin 3.5, Albumin /Globulin Ratio 0.3L 09/15/17 08:55: Arterial Blood pH 7.371, Arterial Blood Partial Pressure CO2 36.1, Arterial Blood Partial Pressure O2 79.5, Arterial Blood HCO3 20.4L, Arterial Blood Oxygen Saturation 95.3, Arterial Blood Base Excess -4.3, Tevin Test Positive Height (Feet): 5 Height (Inches): 8.00 Weight (Pounds): 170 Objective WDWN ETT coarse breath sounds bilaterally without rhonchi or wheeze [id number] without MRG NABS nontender no HSM no CC withdrawn ÁNGEL LAO Sep 15, 2017 09:10
[2017-09-15] MEDS: Phenylephrine 50 MG in D5W 245 ML IV SCH (13:54)
--- NOTE | 2017-09-15 16:15 | Wound Care Consultation ---
Wound Assessment Wound Assessment #1: Wound Number: 1 Wound Present on Admission: Yes New Wound: No Status Change of Wound: No Wound Location Body Site Modif: mid Wound Location Body Site: sacral Wound Type: pressure ulcer Aubrey Test: Does not Aubrey Pressure Ulcer Stage: III - scattered Wound Thickness: Full Thickness Wound Length: 4.5 Wound Width: 6.5 Wound Depth: 0.2 Percent of Wound [place]/Red: 100 Wound Drainage Description: Serosanguineous Wound Drainage Amount: Moderate Wound Drainage Odor: None/Absent Tissue Surrounding Wound: DTI purple/maroon in color. At risk for further skin breakdown Wound General Appearance: Reddened, Draining Wound Assessment #2: Wound Number: 2 Wound Present on Admission: Yes New Wound: No Status Change of Wound: No Wound Location Body Site Modif: mid Wound Location Body Site: coccyx - extending to right buttock Wound Type: pressure ulcer Aubrey Test: Does not Aubrey Pressure Ulcer Stage: III Wound Thickness: Full Thickness Wound Length: 2.5 Wound Width: 2.5 Wound Depth: 0.2 Percent of Wound [place]/Red: 80 Percent of Wound Bed Yellow/Wh: 10 Percent of Wound Black/Brown: 10 Wound Drainage Description: Serosanguineous Wound Drainage Amount: Scant Wound Drainage Odor: None/Absent Tissue Surrounding Wound: Erythemic Wound General Appearance: Reddened, Draining Wound Assessment #3: Wound Number: 3 Wound Present on Admission: Yes New Wound: No Status Change of Wound: No Wound Location Body Site Modif: right Wound Location Body Site: heel Wound Type: pressure ulcer Aubrey Test: Does not Aubrey Pressure Ulcer Stage: III Wound Thickness: Full Thickness Wound Length: 2.5 Wound Width: 2.5 Wound Depth: 0.2 Percent of Wound [place]/Red: 100 Wound Drainage Description: Serosanguineous Wound Drainage Amount: Scant Wound Drainage Odor: None/Absent Tissue Surrounding Wound: Erythemic Wound General Appearance: Reddened, Draining Wound Assessment #4: Wound Number: 4 Wound Present on Admission: Yes New Wound: No Status Change of Wound: No Wound Location Body Site Modif: left Wound Location Body Site: heel Wound Type: pressure ulcer Aubrey Test: Does not Aubrey Pressure Ulcer Stage: I Wound Length: 3.5 Wound Width: 3.5 Percent of Wound [place]/Red: 100 Wound Drainage Amount: None Wound Drainage Odor: None/Absent Tissue Surrounding Wound: Intact Wound General Appearance: Reddened Wound Assessment #5: Wound Number: 5 Wound Present on Admission: Yes New Wound: No Status Change of Wound: No Wound Location Body Site Modif: right Wound Location Body Site: trochanter Wound Type: scar Aubrey Test: Does not Aubrey Wound Thickness: Full Thickness Wound Length: 0.5 Wound Width: 0.5 Percent of Wound [place]/Red: 100 Wound Drainage Amount: None Wound Drainage Odor: None/Absent Tissue Surrounding Wound: Intact Wound General Appearance: Asymptomatic Wound Assessment #6: Wound Number: 6 Wound Present on Admission: Yes New Wound: No Status Change of Wound: No Wound Location Body Site Modif: left, right, lower Wound Location Body Site: leg Wound Type: other - dry flaky skin Aubrey Test: Does not Aubrey Wound Drainage Amount: None Wound Drainage Odor: None/Absent Wound Comment #1 Sacral area scattered stage III pressure ulcers. Surrounding skin with DTI purple/maroon in color #2 Coccyx area stage III extending to right buttock #3 Right heel stage III pressure ulcer #4 Left heel stage I pressure ulcer #5 Right trochanter and right inner thigh with scar tissue #6 Left and right lower legs with dry flaky skin Recommendation -Local wound care per protocol -Keep clean and dry -Turn and reposition -Offload both heels -Heel protector on both heels -Low air loss P200 mattress -Optimize nutrition -Assess and f/u accordingly for any changes JUANA LUO RN Sep 15, 2017 16:15
--- NOTE | 2017-09-15 16:57 | Cardiology Report ---
APPROVED REPORT EXAM: Two-dimensional and M-mode echocardiogram with Doppler and color Doppler. INDICATION ALTERED MENTAL STATUS M-Mode DIMENSIONS IVSd1.2 (0.7-1.1cm)Left Atrium (MM)2.0 (1.6-4.0cm) LVDd4.1 (3.5-5.6cm)Aortic Root2.6 (2.0-3.7cm) PWd1.5 (0.7-1.1cm)Aortic Cusp Exc.1.4 (1.5-2.0cm) IVSs1.7 cm LVDs2.6 (2.5-4.0cm) PWs1.5 cm Normal left ventricular chamber size, systolic function and wall motion . Left ventricular ejection fraction estimated to be 65-70 %. No evidence of left ventricular hypertrophy No evidence of pericardial effusion All other cardiac chamber sizes are within normal limits. Mild Thickened mitral valve leaflets with normal excursion. Mild Mitral annulus and aortic root calcification. Normal pulmonic valve structure. Normal tricuspid valve structure. IVC dilated at 3.1 size with slight physiologic collapse. A color flow and spectral Doppler study was performed and revealed: No aortic insufficiency. Peak gradient of 17mm hg and mead gradient of 9 mmhg across the aortic valve was recorded Trace mitral regurgitation. Mitral diastolic velocities suggest reduced left ventricular relaxation c/w mild LV diastolic dysfunction (Grade I ). Mild tricuspid regurgitation. Tricuspid systolic velocities suggests peak right ventricular systolic pressure of 39 mmHg,consistent with mild pulmonary hypertension. No Pulmonic regurgitation present.
--- NOTE | 2017-09-15 17:25 | Diagnostic Imaging Report ---
Indication: Elevated LFTs PA Technique: The planar grayscale and color Doppler imaging of the abdomen Comparison: None available Findings: Imaged portions of the pancreatic head are unremarkable. The body and tail are not seen. The liver is normal in size and contour. No focal hepatic mass lesion is appreciated sonographically. Multiple calcified gallstone noted within the somewhat contracted gallbladder. No appreciable gallbladder wall thickening or pericholecystic fluid. No intrahepatic biliary ductal dilatation. Common bile duct is not dilated, measuring 6.3 mm in diameter. Kidneys demonstrate normal parenchymal echogenicity and thickness bilaterally. There is no hydronephrosis or sonographically appreciable renal stone. Moon catheter decompresses the bladder. Mild ascites is noted. Bilateral pleural effusions are noted, right greater than left. Impression: Cholelithiasis. No definite evidence to suggest acute cholecystitis however is limited. Consider HIDA exam for further assessment as clinically indicated. Bilateral pleural effusion, right greater left. Mild ascites.
--- NOTE | 2017-09-15 18:40 | Diagnostic Imaging Report ---
Indication: Abdominal pain Technique: CT of the abdomen and pelvis utilizing automated exposure control without intravenous contrast. Oral contrast was administered. CT dose: Total DLP 737.72 mGycm; CTDI vol 15.7 mGy Comparison: Correlation made to concurrent abdominal ultrasound Findings: Limited evaluation without intravenous contrast. Within these limitations following observations are made: Moderate right and small left pleural effusion with adjacent dense consolidation in the bilateral lower lobes. The heart is borderline enlarged. There may be some mild septal thickening suggestive of a degree of fluid overload. There are probable coronary arterial calcifications. No definite pericardial effusion. Known cholelithiasis better appreciated on concurrent abdominal sonogram. Noncontrast evaluation of the liver is otherwise unremarkable. Noncontrast evaluation of the spleen, adrenal glands, pancreas and kidneys is grossly unremarkable. A Moon catheter decompresses the bladder. Likely prior prostatectomy. There is no evidence to suggest bowel obstruction. There is mild abdominal pelvic ascites. NG tube tip in the region of the first portion of the duodenum. There is marked thickening of the stomach. Oral contrast has only made it to the distal small bowel at time of imaging. No oral contrast is noted within the colon. There is apparent diffuse colonic thickening most likely reflective of a colitis. There is sigmoid diverticulosis. Question mild thickening of the sigmoid however evaluation is limited without opacification by oral contrast. Some small foci of gas projecting anteriorly in the pelvis on the left (series 3 image 101) likely related to gas within colonic diverticula. A small focus of gas midline in the lower pelvis (series 3 image 112) may represent gas sitting antidependently in the bladder. Repeat exam once contrast has traversed into the colon would be helpful for evaluation. There is no well-defined/drainable fluid collection to suggest abscess. Abdominal aorta appears normal in caliber with scattered atherosclerotic calcifications. There is anasarca. There are multilevel degenerative changes of the thoracolumbar spine with grade 1 anterolisthesis of L4 on L5. Impression: Limited evaluation without IV contrast. * No evidence of bowel obstruction. * Apparent diffuse colonic thickening possibly reflective of a colitis, infectious or inflammatory etiology. Sigmoid diverticulosis with apparent thickening of the wall of the sigmoid colon. Some small foci of gas low in the pelvis noted which may represent air within colonic diverticuli or air in the bladder as detailed above. Small foci of intraperitoneal air though less likely but not entirely excluded. Recommend repeat exam later this evening once oral contrast has traversed the colon (around 20:00-21:00 tonight). This was discussed with the patient's treating ICU nurse via telephone conversation at approximately 18:20 on 09/15/17. * Moderate right and small left pleural effusions with adjacent dense consolidations in the bilateral lower lobes. Additional findings as above. The CT scanner at [facility] is accredited by the [employer] [place] [employer] [employer] and the scans are performed using protocols designed to limit radiation exposure to as low as reasonably achievable to attain images of sufficient resolution adequate for diagnostic evaluation.
--- NOTE | 2017-09-15 20:10 | Consultation ---
Consult Note Assessment/Plan [id number] job id Aditya Del Toro Sep 15, 2017 20:10
[2017-09-15] MEDS: Vitamin A&D Oint 2oz Tube TOPIC SCH (20:53)
--- NOTE | 2017-09-15 22:33 | General Progress Note ---
Assessment/Plan Assessment/Plan Assessment - UGIB - sepsis / shock - anemia - Resp failure ENDOSCOPY (09/15/17) - moderate ulcerative esophagitis - no active bleeding Recommendations - follow labs - transfuse PRN - PPI BID - abx - supportive care Subjective Allergies: Coded Allergies: LISINOPRIL (Verified Allergy, Unknown, 09/13/17) [id number] REDUCTASE INHIBITOR (Verified Allergy, Unknown, 09/13/17) Subjective non communicative d/w family at bedside mucoid dark stools this am Objective Last 24 Hour Vital Signs Date Time Temp Pulse Resp B/P (MAP) Pulse Ox O2 Delivery O2 Flow Rate FiO2 09/15/17 21:16 73 34 50 18 20:30 86 31 98/49 100 Mechanical Ventilator 50 09/15/17 20:00 50 09/15/17 20:00 98.3 84 31 98/46 100 Mechanical Ventilator 50 09/15/17 20:00 84 09/15/17 19:30 75 30 110/49 100 Mechanical Ventilator 50 09/15/17 19:04 79 33 50 18 19:00 86 28 111/50 100 Mechanical Ventilator 50 18 19:00 101/60 18 18:30 89 23 99/53 100 Mechanical Ventilator 50 09/15/17 18:00 86 30 113/54 100 Mechanical Ventilator 50 18 18:00 113/54 18 17:30 80 31 113/45 100 Mechanical Ventilator 50 09/15/17 17:00 70 25 116/50 100 Mechanical Ventilator 50 09/15/17 16:56 72 34 50 18 16:32 50 18 16:30 77 29 98/62 100 Mechanical Ventilator 50 18 16:00 97/39 18 16:00 79 09/15/18 16:00 97.2 77 30 97/39 100 Mechanical Ventilator 50 18 15:30 76 29 101/60 100 Mechanical Ventilator 50 18 15:10 79 34 50 2/18 15:00 78 33 100/49 100 Mechanical Ventilator 50 09/15/18 15:00 100/49 18 14:30 74 32 91/47 100 Mechanical Ventilator 50 18 14:00 78 27 99/40 99 Mechanical Ventilator 50 1/2/18 14:00 99/40 1/2/18 13:54 121/50 1/2/18 13:54 86 121/50 1/2/18 13:30 84 29 121/50 99 Mechanical Ventilator 50 1/2/18 13:13 77 32 50 1/2/18 13:00 87 29 129/59 97 Mechanical Ventilator 50 1/2/18 12:30 83 28 100/53 100 Mechanical Ventilator 50 1/2/18 12:00 97.3 83 29 103/53 100 Mechanical Ventilator 50 1/2/18 12:00 87 1/2/18 12:00 50 1/2/18 11:30 82 27 116/51 100 Mechanical Ventilator 50 1/2/18 11:00 119/54 1/2/18 11:00 79 28 119/54 100 Mechanical Ventilator 50 1/2/18 10:32 79 33 50 1/2/18 10:30 78 31 133/60 100 Mechanical Ventilator 50 1/2/18 10:00 76 98/49 100 Mechanical Ventilator 50 1/2/18 10:00 98/49 1/2/18 09:30 76 30 95/76 100 Mechanical Ventilator 50 1/2/18 09:00 103/46 1/2/18 09:00 80 30 103/46 100 Mechanical Ventilator 50 1/2/18 08:55 75 31 50 1/2/18 08:52 76 100 1/2/18 08:30 78 115/45 100 Mechanical Ventilator 50 1/2/18 08:00 98.8 84 114/56 100 Mechanical Ventilator 50 1/2/18 08:00 114/56 1/2/18 08:00 86 1/2/18 07:49 50 1/2/18 07:30 82 104/51 100 Mechanical Ventilator 50 1/2/18 07:19 104 34 50 1/2/18 07:03 107/53 1/2/18 07:00 83 30 119/51 100 Mechanical Ventilator 50 1/2/18 06:30 80 28 102/48 100 Mechanical Ventilator 50 1/2/18 06:00 81 29 115/48 100 Mechanical Ventilator 50 1/2/18 05:30 76 30 114/55 100 Mechanical Ventilator 50 1/2/18 05:00 68 29 113/43 100 Mechanical Ventilator 50 1/2/18 04:54 76 32 50 1/2/18 04:30 75 22 116/45 100 Mechanical Ventilator 50 09/15/17 04:00 50 09/15/17 04:00 98.7 70 22 95/48 100 Mechanical Ventilator 50 09/15/17 04:00 70 09/15/17 03:30 73 20 113/52 100 Mechanical Ventilator 50 09/15/17 03:00 73 30 101/47 100 Mechanical Ventilator 50 09/15/17 02:36 78 31 50 09/15/17 02:30 67 27 104/48 100 Mechanical Ventilator 50 09/15/17 02:00 67 24 98/61 100 Mechanical Ventilator 50 09/15/17 02:00 98/61 09/15/17 01:30 64 25 115/54 100 Mechanical Ventilator 50 09/15/17 01:04 75 33 50 09/15/17 01:00 105/52 09/15/17 01:00 69 25 105/52 100 Mechanical Ventilator 50 09/15/17 00:30 74 29 94/42 100 Mechanical Ventilator 50 09/15/17 00:00 99.6 80 34 94/46 100 Mechanical Ventilator 50 09/15/17 00:00 94/46 09/15/17 00:00 50 09/15/17 00:00 80 09/14/17 23:30 80 33 94/43 100 Mechanical Ventilator 50 09/14/17 23:30 100/51 09/14/17 23:00 87 31 92/45 99 Mechanical Ventilator 50 09/14/17 22:42 84 29 50 09/14/17 22:30 86 31 100/54 100 Mechanical Ventilator 50 Intake and Output 09/14/17 09/15/17 19:00 07:00 Intake Total 250 ml 1570.0 ml Output Total 410 ml Balance 250 ml 1160.0 ml Intake Oral 0 ml IV Total 1570.0 ml Blood Product 250 ml Output Urine Total 410 ml Laboratory Tests 09/15/17 05:00: White Blood Count 7.0#, Red Blood Count 2.99L, Hemoglobin 9.5L, Hematocrit 28.7L , Mean Corpuscular Volume 96, Mean Corpuscular Hemoglobin 31.7H, Mean Corpuscular Hemoglobin Concent 33.0, Red Cell Distribution Width 15.2H, Platelet Count 179, Mean Platelet Volume 9.1, Neutrophils (%) (Auto) 80.4H, Lymphocytes (%) (Auto) 13.4L, Monocytes (%) (Auto) 4.6, Eosinophils (%) (Auto) 1.0, Basophils (%) (Auto) 0.6, Sodium Level 149H, Potassium Level 4.0, Chloride Level 116H, Carbon Dioxide Level 25, Anion Gap 8, Blood Urea Nitrogen 65H, Creatinine 3.3H, Estimat Glomerular Filtration Rate , Glucose Level 77, Calcium Level 6.5L, Total Bilirubin 0.4, Aspartate Amino Transf (AST/SGOT) 46H, Alanine Aminotransferase (ALT/SGPT) 8L, Alkaline Phosphatase 66, Total Creatine Kinase 440H, Troponin I 0.068H, Total Protein 4.7L, Albumin 1.2L, Globulin 3.5, Albumin /Globulin Ratio 0.3L 09/15/17 08:55: Arterial Blood pH 7.371, Arterial Blood Partial Pressure CO2 36.1, Arterial Blood Partial Pressure O2 79.5, Arterial Blood HCO3 20.4L, Arterial Blood Oxygen Saturation 95.3, Arterial Blood Base Excess -4.3, Tevin Test Positive Height (Feet): 5 Height (Inches): 8.00 Weight (Pounds): 170 Objective confused intubated NCAT supple CTA RRR soft NT ND (+) contractures SAJI FREY Sep 15, 2017 22:33
--- NOTE | 2017-09-15 22:34 | Endoscopy Procedure Note ---
Endoscopy Procedure Note Indication for Procedure: ugib Operative Findings/Diagnosis: ulcerative esophagitis Specimen: none Pt Tolerated Procedure Well: Yes Estimated Blood Loss: none Anesthesiologist: see report Anesthesia: MAC Medication Given: see anesthesia record Implant(s) used?: No 50 yrs or older w/o bx or poly: Not Applicable 10yrs. F/U not recommended: Not Applicable If not recommended, why?: SAJI FREY Sep 15, 2017 22:34
--- NOTE | 2017-09-15 22:35 | Brief Operative Note ---
Immediate Post Operative Note Operative Note Chief Complaint: ugib Pre-op Diagnosis: UGIB Procedure: EGd Post-op Diagnosis: GERD Surgeon: kathy Anesthesiologist: see report Anesthesia: MAC Specimen: none Complications: yes Condition: stable Fluids: recorded Estimated Blood Loss: none Drains: none Implant(s) used?: No SAJI FREY Sep 15, 2017 22:35
[2017-09-16] VITALS (48 sets, daily range): BP systolic 80–125; BP diastolic 41–79
[2017-09-16] MEDS ORDERED: Vancomycin 1250mg/D5W 250ml IVPB ONE (04:00)
[2017-09-16] MEDS: Phenylephrine 50 MG in D5W 245 ML IV SCH (04:37)
[2017-09-16] MEDS: Piperacillin/Tazobactam 3.375 GM in NS 110 ML IVPB SCH ×3 (05:39→21:39)
[2017-09-16 05:58] LABS: BASOPHILS % (AUTO) 0.4 % (0.0-2.0); EOSINOPHILS % (AUTO) 2.4 % (0.0-3.0); HEMATOCRIT 28.6 % (42.0-52.0); HEMOGLOBIN 9.2 G/DL (14.2-18.0); LYMPHOCYTES % (AUTO) 8.9 % (20.0-45.0); MEAN CORPUSCULAR VOLUME 97 FL (80-99); MONOCYTES % (AUTO) 4.1 % (1.0-10.0); NEUTROPHILS % (AUTO) 84.1 % (45.0-75.0); PLATELET COUNT 192 K/UL (150-450); RED BLOOD COUNT 2.95 M/UL (4.70-6.10); RED CELL DISTRIBUTION WIDTH 15.1 % (11.6-14.8); WHITE BLOOD COUNT 9.8 K/UL (4.8-10.8)
[2017-09-16 06:10] LABS: ANION GAP 9 mmol/L (5-15); BLOOD UREA NITROGEN 73 mg/dL (7-18); CALCIUM 6.6 MG/DL (8.5-10.1); CARBON DIOXIDE 23 MMOL/L (21-32); CHLORIDE 114 MMOL/L (98-107); CREATININE 3.8 MG/DL (0.55-1.30); POTASSIUM 4.2 MMOL/L (3.5-5.1); SODIUM 146 MMOL/L (136-145)
[2017-09-16 08:13] LABS: CKMB 2.3 NG/ML (0.0-3.6)
[2017-09-16] MEDS: Pantoprazole Inj IVP SCH (08:35)
[2017-09-16] MEDS: Vitamin A&D Oint 2oz Tube TOPIC SCH ×2 (08:35→21:24)
--- NOTE | 2017-09-16 09:13 | General Progress Note ---
Assessment/Plan Assessment/Plan IMPRESSION GIB respiratory failure pneumonia CKD/ARF anemia hypernatremia hypotension possible sepsis leukopenia PLAN monitor HH protonix IV GI evaluation appreciated IV antibiotics ID evaluation- noted monitor labs still requiring pressors feeds per GI vent support and monitor ABG transfer to [place] when stable and off levophed monitor and avoid excessive hydration guarded Subjective ROS Limited/Unobtainable: Yes Allergies: Coded Allergies: LISINOPRIL (Verified Allergy, Unknown, 09/13/17) [id number] REDUCTASE INHIBITOR (Verified Allergy, Unknown, 09/13/17) Subjective care noted remains on the ventilator poor LOC Objective Last 24 Hour Vital Signs Date Time Temp Pulse Resp B/P (MAP) Pulse Ox O2 Delivery O2 Flow Rate FiO2 09/16/17 08:35 113/56 09/16/17 08:30 100.7 63 27 108/63 100 Mechanical Ventilator 50 09/16/17 08:00 50 09/16/17 08:00 89 09/16/17 08:00 70 26 113/56 100 Mechanical Ventilator 50 09/16/17 07:30 58 27 121/48 100 Mechanical Ventilator 50 09/16/17 07:15 78 37 50 09/16/17 07:00 59 27 125/57 100 Mechanical Ventilator 50 09/16/17 06:30 59 26 94/41 100 Mechanical Ventilator 50 09/16/17 06:00 73 32 113/48 100 Mechanical Ventilator 50 09/16/17 05:30 73 31 97/46 100 Mechanical Ventilator 50 09/16/17 05:21 71 28 50 09/16/17 05:00 71 31 97/43 100 Mechanical Ventilator 50 09/16/17 04:37 66 114/44 09/16/17 04:30 81 22 114/44 100 Mechanical Ventilator 50 09/16/17 04:00 75 09/16/17 04:00 50 09/16/17 04:00 98.3 75 29 121/55 100 Mechanical Ventilator 50 09/16/17 03:30 77 27 100/47 100 Mechanical Ventilator 50 09/16/17 03:05 64 33 50 09/16/17 03:00 68 27 94/47 100 Mechanical Ventilator 50 09/16/17 02:30 79 30 102/43 100 Mechanical Ventilator 50 09/16/17 02:00 66 30 104/49 100 Mechanical Ventilator 50 09/16/17 01:30 70 29 120/55 100 Mechanical Ventilator 50 1/3/18 01:16 75 34 50 1/3/18 01:00 71 30 112/49 100 Mechanical Ventilator 50 1/3/18 00:30 82 33 103/56 100 Mechanical Ventilator 50 1/3/18 00:00 98.2 87 33 117/48 100 Mechanical Ventilator 50 1/3/18 00:00 87 1/3/18 00:00 50 1/2/18 23:30 80 30 102/46 100 Mechanical Ventilator 50 1/2/18 23:24 66 28 50 1/2/18 23:00 81 29 109/56 100 Mechanical Ventilator 50 1/2/18 22:30 82 31 112/52 99 Mechanical Ventilator 50 1/2/18 22:30 106/59 1/2/18 22:00 86 31 109/54 99 Mechanical Ventilator 50 1/2/18 21:30 78 32 99/64 99 Mechanical Ventilator 50 1/2/18 21:16 73 34 50 1/2/18 21:00 76 29 106/51 100 Mechanical Ventilator 50 1/2/18 20:30 86 31 98/49 100 Mechanical Ventilator 50 1/2/18 20:00 50 1/2/18 20:00 98.3 84 31 98/46 100 Mechanical Ventilator 50 1/2/18 20:00 84 1/2/18 19:30 75 30 110/49 100 Mechanical Ventilator 50 1/2/18 19:04 79 33 50 1/2/18 19:00 86 28 111/50 100 Mechanical Ventilator 50 1/2/18 19:00 101/60 1/2/18 18:30 89 23 99/53 100 Mechanical Ventilator 50 1/2/18 18:00 86 30 113/54 100 Mechanical Ventilator 50 1/2/18 18:00 113/54 1/2/18 17:30 80 31 113/45 100 Mechanical Ventilator 50 1/2/18 17:00 70 25 116/50 100 Mechanical Ventilator 50 1/2/18 16:56 72 34 50 1/2/18 16:32 50 1/2/18 16:30 77 29 98/62 100 Mechanical Ventilator 50 1/2/18 16:00 97/39 1/2/18 16:00 79 1/2/18 16:00 97.2 77 30 97/39 100 Mechanical Ventilator 50 1/2/18 15:30 76 29 101/60 100 Mechanical Ventilator 50 09/15/17 15:10 79 34 50 18 15:00 78 33 100/49 100 Mechanical Ventilator 50 09/15/17 15:00 100/49 09/15/17 14:30 74 32 91/47 100 Mechanical Ventilator 50 09/15/17 14:00 78 27 99/40 99 Mechanical Ventilator 50 09/15/17 14:00 99/40 09/15/17 13:54 121/50 09/15/17 13:54 86 121/50 09/15/17 13:30 84 29 121/50 99 Mechanical Ventilator 50 09/15/17 13:13 77 32 50 09/15/17 13:00 87 29 129/59 97 Mechanical Ventilator 50 09/15/17 12:30 83 28 100/53 100 Mechanical Ventilator 50 09/15/17 12:00 97.3 83 29 103/53 100 Mechanical Ventilator 50 09/15/17 12:00 87 09/15/17 12:00 50 09/15/17 11:30 82 27 116/51 100 Mechanical Ventilator 50 09/15/17 11:00 119/54 09/15/17 11:00 79 28 119/54 100 Mechanical Ventilator 50 09/15/17 10:32 79 33 50 09/15/17 10:30 78 31 133/60 100 Mechanical Ventilator 50 09/15/17 10:00 76 98/49 100 Mechanical Ventilator 50 09/15/17 10:00 98/49 09/15/17 09:30 76 30 95/76 100 Mechanical Ventilator 50 Intake and Output 09/15/17 09/16/17 19:00 07:00 Intake Total 940.0 ml 2092.5 ml Output Total 305 ml 370 ml Balance 635.0 ml 1722.5 ml Intake Oral 0 ml 0 ml IV Total 940.0 ml 2092.5 ml Output Urine Total 305 ml 370 ml # Bowel Movements 2 Laboratory Tests 09/15/17 22:50: Random Vancomycin Level 9.9 09/16/17 05:00: White Blood Count 9.8, Red Blood Count 2.95L, Hemoglobin 9.2L, Hematocrit 28.6L , Mean Corpuscular Volume 97, Mean Corpuscular Hemoglobin 31.1H, Mean Corpuscular Hemoglobin Concent 32.1, Red Cell Distribution Width 15.1H, Platelet Count 192, Mean Platelet Volume 8.5, Neutrophils (%) (Auto) 84.1H, Lymphocytes (%) (Auto) 8.9L, Monocytes (%) (Auto) 4.1, Eosinophils (%) (Auto) 2.4, Basophils (%) (Auto) 0.4, Sodium Level 146H, Potassium Level 4.2, Chloride Level 114H, Carbon Dioxide Level 23, Anion Gap 9, Blood Urea Nitrogen 73H, Creatinine 3.8H, Estimat Glomerular Filtration Rate , Glucose Level 75, Lactic Acid Level 0.90, Calcium Level 6.6L, Total Creatine Kinase 234, Creatine Kinase MB 2.3, Creatine Kinase MB Relative Index 0.9, Troponin I 0.039 Height (Feet): 5 Height (Inches): 8.00 Weight (Pounds): 170 Objective WDWN ETT coarse breath sounds bilaterally without rhonchi or wheeze [id number] without MRG NABS nontender no HSM no CC withdrawn with poor LOC ÁNGEL LAO Sep 16, 2017 09:13
--- NOTE | 2017-09-16 10:15 | Consultation ---
DATE OF CONSULTATION: 09/15/2017 NOTE: POOR AUDIO HEMATOLOGY/ONCOLOGY CONSULTATION NOTE CONSULTING PHYSICIAN: Aditya Del Toro M.D. REQUESTING PHYSICIAN: Huang Springer M.D. REASON FOR CONSULTATION: Evaluation of severe leukopenia. IDENTIFICATION DATA: Dear Dr. Springer: The patient is a pleasant 82-year-old male with past medical history significant for dementia, CKD, and hypertension who at this time presents to the hospital with some GI bleed, advanced dementia was noted, presented to the ER, required intubation, and subsequently transferred to the ICU because of sepsis, have some dark emesis. noted to have leukopenia. Hematology Service was consulted. He currently has improved. PAST MEDICAL HISTORY: Dementia, CKD, and hypertension. MEDICATIONS: Reviewed. ALLERGIES: Lisinopril and statins. FAMILY HISTORY: Unable to obtain. SOCIAL HISTORY: Unable to obtain. REVIEW OF SYSTEMS: Unable to obtain. PHYSICAL EXAMINATION: GENERAL: No acute distress. VITAL SIGNS: Reviewed. PULMONARY: Decreased breath sounds. CARDIOVASCULAR: Regular rate. No S3 or S4. ABDOMEN: Soft, nontender, and nondistended. NEUROLOGICAL: He is intubated. LABORATORY DATA: WBC currently 7, has improved ; hemoglobin of 10.5, hematocrit 31, and platelet count is 179. BUN of 65, creatinine 2.3. Hepatitis panel pending. HIV is negative. ASSESSMENT AND RECOMMENDATIONS: 1. Leukopenia, potentially related to underlying sepsis, has currently improved, status post Neupogen. Hepatitis panel pending. Ultrasound of the abdomen has been completed, shows cholelithiasis, bilateral pleural effusion, and mild ascites. 2. Anemia secondary to chronic disease. 3. Anemia secondary to kidney disease. Continue to closely monitor. 4. Hyponatremia. 5. CKD. 6. Possible sepsis. I appreciate the consultation. Aditya Del Toro M.D. DR: EDVIN JOB#: [id number] CC:
--- NOTE | 2017-09-16 11:25 | Diagnostic Imaging Report ---
Indication: NG tube placement Technique: ABDOMEN 1 VIEW Comparison: Chest radiograph 09/13/2017 Findings: NG tube tip in the region of the distal stomach. Nonspecific bowel gas pattern with some comet small bowel loops in the left upper quadrant. Right arm PICC line, left IJ central line and ET tube unchanged in position. Heart size and mediastinal contours are stable. Patchy right-sided airspace opacities with a right-sided pleural effusion. No acute osseous abnormality seen. Impression: NG tube tip in the region of the pylorus/proximal duodenum. Nonspecific bowel gas pattern with some prominent small bowel loops in the left upper quadrant. The Patchy right-sided airspace opacities with layering right-sided pleural effusion.
[2017-09-16] MEDS ORDERED: Acetaminophen 650mg/20.3ml NG PRN (12:30)
--- NOTE | 2017-09-16 17:00 | Consultation ---
DATE OF CONSULTATION: 09/16/2017 NEPHROLOGY CONSULTATION CONSULTING PHYSICIAN: Antonio Gongora M.D. ATTENDING PHYSICIAN: Huang Springer M.D. REASON FOR CONSULTATION: Elevated BUN and creatinine. HISTORY OF PRESENT ILLNESS: This is an 82-year-old male, admitted to the hospital by the attending physician with the respiratory failure. I am asked to see the patient for elevation of BUN and creatinine. PAST MEDICAL HISTORY: 1. Organic brain syndrome. 2. Chronic kidney disease, etiology unclear. 3. Hypertensive cardiovascular disease. CURRENT MEDICATIONS: IV fluid half NS, IV metronidazole, norepinephrine, and Levophed drip, phenylephrine drip, IV Zosyn, IV vancomycin, Tylenol p.r.n., Protonix, and vancomycin dosed by pharmacy. ALLERGIES: Listed to lisinopril and statins. SOCIAL HISTORY: Unable to obtain secondary to mental status. FAMILY HISTORY: Unable to obtain secondary to mental status. REVIEW OF SYSTEMS: Unable to obtain secondary to mental status. PHYSICAL EXAMINATION: GENERAL: This is an elderly male, who is intubated transorally. VITAL SIGNS: Blood pressure 123/41, pulse 69, and respirations 27 and labored. HEENT: The head is normocephalic and atraumatic. Pupils are equal, round, and reactive to light and accommodation consensually. NECK: Supple. Trachea midline. There was no lymphadenopathy or thyromegaly. LUNGS: Clear to auscultation and percussion. HEART: Regular rate and rhythm without rubs, murmurs, or gallops. ABDOMEN: Soft. Bowel sounds were active. EXTREMITIES: He has 3+ bilateral edema. NEUROLOGIC: He is obtunded. There were no gross focal findings. LABORATORY AND ANCILLARY DATA: Sodium 146, potassium 4.2, BUN 73, and creatinine 3.8. ABGs, yesterday pH 7.37, pCO2 36, pO2 80, and bicarbonate 20.4. A 2D echo, there is mild diastolic dysfunction and ejection fraction about 70%. CT scan of the abdomen and pelvis, anasarca, otherwise unremarkable. ASSESSMENT: Acute on chronic kidney failure, etiology unclear. Rule out sepsis and rule out other etiologies. PLAN: Continue to monitor the patient. Thank you, Dr. Springer, for letting me participate in the care of this patient. Antonio Gongora M.D. DR: JEFFREY JOB#: [id number] CC:
--- NOTE | 2017-09-16 19:24 | Cardiology Report ---
APPROVED REPORT EKG Measurement Heart [id number] Normal sinus rhythm Normal ECG
--- NOTE | 2017-09-16 20:44 | General Progress Note ---
Assessment/Plan Assessment/Plan 1. Leukopenia, potentially related to underlying sepsis, has currently improved , status post Neupogen. Hepatitis panel neg. Ultrasound of the abdomen has been completed, shows cholelithiasis, bilateral pleural effusion, and mild ascites. 2. Anemia secondary to chronic disease. 3. Anemia secondary to kidney disease. Continue to closely monitor. 4. Hyponatremia. 5. CKD. 6. Possible sepsis. I appreciate the consultation. Subjective Constitutional: Reports: fever HEENT: Denies: no symptoms, eye pain, blurred vision, tearing, double vision, ear pain, ear discharge, nose pain, nose congestion, throat pain, throat swelling, mouth pain, mouth swelling, other Cardiovascular: Denies: no symptoms, chest pain, edema, irregular heart rate, lightheadedness, palpitations, syncope, other Respiratory: Reports: shortness of breath, Denies: no symptoms, cough, orthopnea, SOB with excertion, SOB at rest, sputum, stridor, wheezing, other Gastrointestinal/Abdominal: Denies: no symptoms, abdomen distended, abdominal pain, black stools, tarry stools, blood in stool, constipated, diarrhea, difficulty swallowing, nausea, poor appetite, poor fluid intake, rectal bleeding , vomiting, other Genitourinary: Denies: no symptoms, burning, discharge, frequency, flank pain, hematuria, incontinence, pain, urgency, other Neurologic/Psychiatric: Denies: no symptoms, anxiety, depressed, emotional problems, headache, numbness, paresthesia, pre-existing deficit, seizure, tingling, tremors, weakness, other Endocrine: Denies: no symptoms, excessive sweating, flushing, intolerance to cold, intolerance to heat, increased hunger, increased thirst, increased urine, unexplained weight gain, unexplained weight loss, other Hematologic/Lymphatic: Reports: anemia Allergies: Coded Allergies: LISINOPRIL (Verified Allergy, Unknown, 09/13/17) [id number] REDUCTASE INHIBITOR (Verified Allergy, Unknown, 09/13/17) Subjective on the ventilator Objective Last 24 Hour Vital Signs Date Time Temp Pulse Resp B/P (MAP) Pulse Ox O2 Delivery O2 Flow Rate FiO2 09/16/17 19:00 53 27 101/49 100 Mechanical Ventilator 50 09/16/17 19:00 101/49 09/16/17 18:56 66 30 40 1/3/18 18:30 67 27 106/56 98 Mechanical Ventilator 50 09/16/17 18:00 67 27 112/79 99 Mechanical Ventilator 50 09/16/17 18:00 112/79 09/16/17 17:30 98.8 62 26 105/49 97 Mechanical Ventilator 50 09/16/17 17:00 99.0 60 30 95/63 100 Mechanical Ventilator 50 09/16/17 17:00 95/63 09/16/17 16:45 54 24 40 09/16/17 16:30 43 27 95/62 100 Mechanical Ventilator 50 09/16/17 16:00 73 09/16/17 16:00 58 27 98/58 100 Mechanical Ventilator 50 09/16/17 16:00 95/62 09/16/17 16:00 50 09/16/17 15:37 97/63 09/16/17 15:30 55 27 97/63 100 Mechanical Ventilator 50 09/16/17 15:21 73 31 40 09/16/17 15:00 63 27 110/53 100 Mechanical Ventilator 50 09/16/17 15:00 105/58 09/16/17 14:30 58 27 111/53 100 Mechanical Ventilator 50 09/16/17 14:00 47 27 120/59 100 Mechanical Ventilator 50 09/16/17 14:00 107/56 09/16/17 13:30 68 27 119/79 100 Mechanical Ventilator 50 09/16/17 13:00 68 27 101/52 100 Mechanical Ventilator 50 09/16/17 13:00 101/52 09/16/17 12:51 75 40 40 09/16/17 12:30 69 27 123/41 100 Mechanical Ventilator 50 09/16/17 12:00 50 09/16/17 12:00 71 27 115/46 100 Mechanical Ventilator 50 09/16/17 12:00 114/56 09/16/17 12:00 79 09/16/17 11:30 69 33 99/45 100 Mechanical Ventilator 50 09/16/17 11:05 71 37 40 09/16/17 11:00 116/45 09/16/17 11:00 67 33 116/45 100 Mechanical Ventilator 50 09/16/17 10:30 70 28 98/44 100 Mechanical Ventilator 50 09/16/17 10:00 100.7 70 28 106/58 100 Mechanical Ventilator 50 09/16/17 10:00 94/70 09/16/17 09:30 66 28 99/48 100 Mechanical Ventilator 50 09/16/17 09:26 58 25 50 09/16/17 09:00 67 26 99/43 100 Mechanical Ventilator 50 09/16/17 09:00 106/58 09/16/17 08:35 113/56 09/16/17 08:30 99.9 63 27 108/63 100 Mechanical Ventilator 50 09/16/17 08:00 50 09/16/17 08:00 89 09/16/17 08:00 70 26 113/56 100 Mechanical Ventilator 50 09/16/17 07:30 58 27 121/48 100 Mechanical Ventilator 50 09/16/17 07:15 78 37 50 09/16/17 07:00 59 27 125/57 100 Mechanical Ventilator 50 09/16/17 06:30 59 26 94/41 100 Mechanical Ventilator 50 09/16/17 06:00 73 32 113/48 100 Mechanical Ventilator 50 09/16/17 05:30 73 31 97/46 100 Mechanical Ventilator 50 09/16/17 05:21 71 28 50 09/16/17 05:00 71 31 97/43 100 Mechanical Ventilator 50 09/16/17 04:37 66 114/44 09/16/17 04:30 81 22 114/44 100 Mechanical Ventilator 50 09/16/17 04:00 75 09/16/17 04:00 50 09/16/17 04:00 98.3 75 29 121/55 100 Mechanical Ventilator 50 09/16/17 03:30 77 27 100/47 100 Mechanical Ventilator 50 09/16/17 03:05 64 33 50 09/16/17 03:00 68 27 94/47 100 Mechanical Ventilator 50 09/16/17 02:30 79 30 102/43 100 Mechanical Ventilator 50 09/16/17 02:00 66 30 104/49 100 Mechanical Ventilator 50 09/16/17 01:30 70 29 120/55 100 Mechanical Ventilator 50 09/16/17 01:16 75 34 50 09/16/17 01:00 71 30 112/49 100 Mechanical Ventilator 50 09/16/17 00:30 82 33 103/56 100 Mechanical Ventilator 50 09/16/17 00:00 98.2 87 33 117/48 100 Mechanical Ventilator 50 09/16/17 00:00 87 09/16/17 00:00 50 09/15/17 23:30 80 30 102/46 100 Mechanical Ventilator 50 09/15/17 23:24 66 28 50 09/15/17 23:00 81 29 109/56 100 Mechanical Ventilator 50 09/15/17 22:30 82 31 112/52 99 Mechanical Ventilator 50 09/15/17 22:30 106/59 09/15/17 22:00 86 31 109/54 99 Mechanical Ventilator 50 09/15/17 21:30 78 32 99/64 99 Mechanical Ventilator 50 09/15/17 21:16 73 34 50 09/15/17 21:00 76 29 106/51 100 Mechanical Ventilator 50 09/15/17 20:30 86 31 98/49 100 Mechanical Ventilator 50 Intake and Output 09/15/17 09/16/17 19:00 07:00 Intake Total 940.0 ml 2092.5 ml Output Total 305 ml 370 ml Balance 635.0 ml 1722.5 ml Intake Oral 0 ml 0 ml IV Total 940.0 ml 2092.5 ml Output Urine Total 305 ml 370 ml # Bowel Movements 2 Laboratory Tests 09/15/17 22:50: Random Vancomycin Level 9.9 09/16/17 05:00: White Blood Count 9.8, Red Blood Count 2.95L, Hemoglobin 9.2L, Hematocrit 28.6L , Mean Corpuscular Volume 97, Mean Corpuscular Hemoglobin 31.1H, Mean Corpuscular Hemoglobin Concent 32.1, Red Cell Distribution Width 15.1H, Platelet Count 192, Mean Platelet Volume 8.5, Neutrophils (%) (Auto) 84.1H, Lymphocytes (%) (Auto) 8.9L, Monocytes (%) (Auto) 4.1, Eosinophils (%) (Auto) 2.4, Basophils (%) (Auto) 0.4, Sodium Level 146H, Potassium Level 4.2, Chloride Level 114H, Carbon Dioxide Level 23, Anion Gap 9, Blood Urea Nitrogen 73H, Creatinine 3.8H, Estimat Glomerular Filtration Rate , Glucose Level 75, Lactic Acid Level 0.90, Calcium Level 6.6L, Total Creatine Kinase 234, Creatine Kinase MB 2.3, Creatine Kinase MB Relative Index 0.9, Troponin I 0.039 Height (Feet): 5 Height (Inches): 8.00 Weight (Pounds): 170 General Appearance: no apparent distress Cardiovascular: bradycardia Respiratory/Chest: decreased breath sounds Abdomen: non tender, soft Aditya Del Toro Sep 16, 2017 20:44
--- NOTE | 2017-09-16 22:42 | General Progress Note ---
Assessment/Plan Assessment/Plan Assessment - UGIB - sepsis / shock - anemia - Resp failure ENDOSCOPY (09/15/17) - moderate ulcerative esophagitis - no active bleeding Recommendations - follow labs - transfuse PRN - PPI BID - abx - supportive care - Begin TF slowly and check residuals q 4 hours Subjective Allergies: Coded Allergies: LISINOPRIL (Verified Allergy, Unknown, 09/13/17) [id number] REDUCTASE INHIBITOR (Verified Allergy, Unknown, 09/13/17) Subjective d/w RN still on pressors Objective Last 24 Hour Vital Signs Date Time Temp Pulse Resp B/P (MAP) Pulse Ox O2 Delivery O2 Flow Rate FiO2 09/16/17 21:30 60 27 109/55 100 Mechanical Ventilator 50 09/16/17 21:04 59 27 40 09/16/17 21:00 57 26 102/48 100 Mechanical Ventilator 50 09/16/17 20:30 69 14 90/46 98 Mechanical Ventilator 50 09/16/17 20:00 68 09/16/17 20:00 50 09/16/17 20:00 98.9 68 16 105/59 98 Mechanical Ventilator 50 09/16/17 19:30 65 23 115/52 97 Mechanical Ventilator 50 09/16/17 19:00 53 27 101/49 100 Mechanical Ventilator 50 09/16/17 19:00 101/49 09/16/17 18:56 66 30 40 09/16/17 18:30 67 27 106/56 98 Mechanical Ventilator 50 09/16/17 18:00 67 27 112/79 99 Mechanical Ventilator 50 09/16/17 18:00 112/79 09/16/17 17:30 98.8 62 26 105/49 97 Mechanical Ventilator 50 09/16/17 17:00 99.0 60 30 95/63 100 Mechanical Ventilator 50 09/16/17 17:00 95/63 09/16/17 16:45 54 24 40 09/16/17 16:30 43 27 95/62 100 Mechanical Ventilator 50 09/16/17 16:00 73 09/16/17 16:00 58 27 98/58 100 Mechanical Ventilator 50 09/16/17 16:00 95/62 09/16/17 16:00 50 09/16/17 15:37 97/63 09/16/17 15:30 55 27 97/63 100 Mechanical Ventilator 50 09/16/17 15:21 73 31 40 09/16/17 15:00 63 27 110/53 100 Mechanical Ventilator 50 09/16/17 15:00 105/58 09/16/17 14:30 58 27 111/53 100 Mechanical Ventilator 50 09/16/17 14:00 47 27 120/59 100 Mechanical Ventilator 50 09/16/17 14:00 107/56 09/16/17 13:30 68 27 119/79 100 Mechanical Ventilator 50 09/16/17 13:00 68 27 101/52 100 Mechanical Ventilator 50 09/16/17 13:00 101/52 09/16/17 12:51 75 40 40 09/16/17 12:30 69 27 123/41 100 Mechanical Ventilator 50 09/16/17 12:00 50 09/16/17 12:00 71 27 115/46 100 Mechanical Ventilator 50 09/16/17 12:00 114/56 09/16/17 12:00 79 09/16/17 11:30 69 33 99/45 100 Mechanical Ventilator 50 09/16/17 11:05 71 37 40 09/16/17 11:00 116/45 09/16/17 11:00 67 33 116/45 100 Mechanical Ventilator 50 09/16/17 10:30 70 28 98/44 100 Mechanical Ventilator 50 09/16/17 10:00 100.7 70 28 106/58 100 Mechanical Ventilator 50 09/16/17 10:00 94/70 09/16/17 09:30 66 28 99/48 100 Mechanical Ventilator 50 09/16/17 09:26 58 25 50 09/16/17 09:00 67 26 99/43 100 Mechanical Ventilator 50 09/16/17 09:00 106/58 09/16/17 08:35 113/56 09/16/17 08:30 99.9 63 27 108/63 100 Mechanical Ventilator 50 09/16/17 08:00 50 09/16/17 08:00 89 09/16/17 08:00 70 26 113/56 100 Mechanical Ventilator 50 09/16/17 07:30 58 27 121/48 100 Mechanical Ventilator 50 09/16/17 07:15 78 37 50 09/16/17 07:00 59 27 125/57 100 Mechanical Ventilator 50 09/16/17 06:30 59 26 94/41 100 Mechanical Ventilator 50 09/16/17 06:00 73 32 113/48 100 Mechanical Ventilator 50 09/16/17 05:30 73 31 97/46 100 Mechanical Ventilator 50 09/16/17 05:21 71 28 50 09/16/17 05:00 71 31 97/43 100 Mechanical Ventilator 50 09/16/17 04:37 66 114/44 09/16/17 04:30 81 22 114/44 100 Mechanical Ventilator 50 09/16/17 04:00 75 09/16/17 04:00 50 09/16/17 04:00 98.3 75 29 121/55 100 Mechanical Ventilator 50 09/16/17 03:30 77 27 100/47 100 Mechanical Ventilator 50 09/16/17 03:05 64 33 50 09/16/17 03:00 68 27 94/47 100 Mechanical Ventilator 50 09/16/17 02:30 79 30 102/43 100 Mechanical Ventilator 50 09/16/17 02:00 66 30 104/49 100 Mechanical Ventilator 50 09/16/17 01:30 70 29 120/55 100 Mechanical Ventilator 50 09/16/17 01:16 75 34 50 09/16/17 01:00 71 30 112/49 100 Mechanical Ventilator 50 09/16/17 00:30 82 33 103/56 100 Mechanical Ventilator 50 09/16/17 00:00 98.2 87 33 117/48 100 Mechanical Ventilator 50 09/16/17 00:00 87 09/16/17 00:00 50 09/15/17 23:30 80 30 102/46 100 Mechanical Ventilator 50 09/15/17 23:24 66 28 50 09/15/17 23:00 81 29 109/56 100 Mechanical Ventilator 50 Intake and Output 09/15/17 09/16/17 19:00 07:00 Intake Total 940.0 ml 2092.5 ml Output Total 305 ml 370 ml Balance 635.0 ml 1722.5 ml Intake Oral 0 ml 0 ml IV Total 940.0 ml 2092.5 ml Output Urine Total 305 ml 370 ml # Bowel Movements 2 Laboratory Tests 09/15/17 22:50: Random Vancomycin Level 9.9 09/16/17 05:00: White Blood Count 9.8, Red Blood Count 2.95L, Hemoglobin 9.2L, Hematocrit 28.6L , Mean Corpuscular Volume 97, Mean Corpuscular Hemoglobin 31.1H, Mean Corpuscular Hemoglobin Concent 32.1, Red Cell Distribution Width 15.1H, Platelet Count 192, Mean Platelet Volume 8.5, Neutrophils (%) (Auto) 84.1H, Lymphocytes (%) (Auto) 8.9L, Monocytes (%) (Auto) 4.1, Eosinophils (%) (Auto) 2.4, Basophils (%) (Auto) 0.4, Sodium Level 146H, Potassium Level 4.2, Chloride Level 114H, Carbon Dioxide Level 23, Anion Gap 9, Blood Urea Nitrogen 73H, Creatinine 3.8H, Estimat Glomerular Filtration Rate , Glucose Level 75, Lactic Acid Level 0.90, Calcium Level 6.6L, Total Creatine Kinase 234, Creatine Kinase MB 2.3, Creatine Kinase MB Relative Index 0.9, Troponin I 0.039 Height (Feet): 5 Height (Inches): 8.00 Weight (Pounds): 170 Objective confused intubated NCAT supple CTA RRR soft NT ND (+) contractures SAJI FREY Sep 16, 2017 22:42
[2017-09-17] VITALS (36 sets, daily range): BP systolic 92–133; BP diastolic 41–74
--- NOTE | 2017-09-17 02:00 | Progress Note ---
DATE: 09/16/2017 CARDIOLOGY FOLLOWUP SUBJECTIVE: The patient's condition remains critical. Prognosis guarded. He remains on ventilator support. He remains on dual pressor support. His blood pressure is marginal in the range of 80 to 100 systolic. The patient's rhythm is predominantly sinus, however, there are frequent episodes of asymptomatic sinus bradycardia and junctional bradycardia. These are asymptomatic and not associated with any apparent respiratory compromise. OBJECTIVE: VITAL SIGNS: Blood pressure 94/41, pulse 59, respiratory rate 26, and afebrile. HEENT: Orally intubated. Thin secretions. LUNGS: Bilateral breath sounds with rhonchi. HEART: Regular rhythm. Slow rate. Normal S1 and S2. ABDOMEN: Soft. EXTREMITIES: Trace edema. LABORATORY AND DIAGNOSTIC DATA: Hemoglobin is stable. Endoscopy was completed yesterday and esophagitis was noted. IMPRESSION: 1. Sepsis with shock. 2. Respiratory failure. 3. Upper gastrointestinal bleed with anemia requiring transfusion. 4. Sinus node disease with paroxysmal bradycardia exacerbated by increased vagal tone due to gastrointestinal symptoms. 5. Acute renal failure. 6. Dehydration. 7. Hyponatremia. PLAN: 1. Levophed titration for blood pressure management. 2. Discontinue Blair-Synephrine. 3. Transfuse for hemoglobin less than 8 g. 4. Proton pump inhibitor. 5. Antimicrobials. 6. Ventilator support. 7. Check thyroid function. 8. DVT prophylaxis. 9. Avoid anti-platelet and anticoagulant therapy. 10. Continue hydration with hypotonic fluids. Margarito Naqvi M.D. DR: LOWELL JOB#: [id number] CC:
--- NOTE | 2017-09-17 02:15 | Consultation ---
DATE OF CONSULTATION: 09/14/2017 CARDIOLOGY CONSULTATION CONSULTING PHYSICIAN: Margarito Naqvi M.D. REQUESTING PHYSICIAN: Huang Springer M.D. REASON FOR CONSULTATION: Shock. HISTORY OF PRESENT ILLNESS: This is an 82-year-old male, who presented to the emergency room yesterday with gastrointestinal bleeding and respiratory failure, requiring intubation and mechanical ventilation. His blood pressure has been low. He has required pressor support. He has been pancultured and started on empiric antibiotics. I have been asked to assist with cardiovascular care. PAST MEDICAL HISTORY: 1. Anemia of chronic disease. 2. Type 2 diabetes mellitus. 3. Diabetic nephropathy. 4. Cerebrovascular disease with dementia. 5. Prostatic hypertrophy with history of urinary retention. MEDICATIONS: Reviewed and reconciled. ALLERGIES: LINDEN inhibitors and statin drugs. SOCIAL HISTORY: Not obtainable. Per record, he does not smoke or abuse alcohol. FAMILY HISTORY: Not known. REVIEW OF SYSTEMS: Not obtainable from the patient. Pertinent data from records is outlined above. PHYSICAL EXAMINATION: VITAL SIGNS: Afebrile, blood pressure 90/28, pulse 76, and respiratory rate 28. HEENT: Normocephalic and atraumatic. Conjunctivae pale. Oropharynx clear. Orally intubated. NECK: Supple. LUNGS: With coarse breath sounds. Scattered rhonchi. CARDIAC: Regular rhythm and rate. Normal S1 and S2 with a fourth heart sound. ABDOMEN: Slightly distended, but soft. No guarding or rebound. EXTREMITIES: Without edema. There is a central line in the left internal jugular vein with no bleeding at the site. LABORATORY AND DIAGNOSTIC DATA: EKG with sinus rhythm and no acute abnormalities. Chest x-ray with the right-sided infiltrate. IMPRESSION: 1. Sepsis with shock. 2. Hypovolemia. 3. Dehydration. 4. Lactic acidosis. 5. Acute renal failure. 6. Acute myocardial ischemia. 7. Healthcare-acquired pneumonia. 8. Critical and guarded. 9. Gastrointestinal bleeding. PLAN: 1. Volume support. 2. Taper pressors. 3. Continue ventilator support. 4. Broad-spectrum antibiotics. 5. DVT prophylaxis. 6. Stress ulcer prophylaxis. 7. Serial hemoglobin. 8. Antibiotic fine tuning once cultures are available. 9. Proton-pump inhibitor. 10. Serial troponin level. Margarito Naqvi M.D. DR: LOWELL JOB#: [id number] CC: MAXI
--- NOTE | 2017-09-17 02:15 | Progress Note ---
DATE: 09/15/2017 CARDIOLOGY PROGRESS NOTE CRITICAL CARE This is a late entry for 09/15/2017. SUBJECTIVE: The patient remains in critical condition with guarded prognosis. Endoscopy is planned for gastrointestinal bleeding. Troponin level has been elevated. He is on pressor support with marginal blood pressure readings and monitored rhythm sinus with episodes of sinus bradycardia. OBJECTIVE: LUNGS: Coarse breath sounds. Orally intubated. Scattered rhonchi. HEART: Regular rhythm and rate. Normal S1, S2. ABDOMEN: Soft and slightly distended. No guarding or rebound. EXTREMITIES: With no edema. LABORATORY DATA: Troponin 0.068. Sodium 149, potassium 4, chloride 116, bicarbonate 25, BUN 65, and creatinine 3.3. CK is 440. Albumin is 1.2. White count 7 and hemoglobin 9.5. IMPRESSION: 1. Sepsis with shock. 2. Respiratory failure. 3. Dehydration. 4. Hypernatremia. 5. Acute renal failure. 6. Severe protein-calorie malnutrition. 7. Recovering lactic acidosis. 8. Acute myocardial ischemia. 9. Paroxysmal sinus bradycardia due to sinus node disease, unlikely exacerbation by increased vagal tone in the setting of gastrointestinal bleeding. PLAN: 1. Hypotonic fluid hydration. 2. Taper off pressors as able. 3. Proton pump inhibitor. 4. No antiplatelet or anticoagulant therapy. 5. Endoscopy with caution. 6. Atropine at bedside. 7. Broad-spectrum antimicrobials. 8. Taper off pressors starting with Blair-Synephrine as clinical parameters permit. 9. Transfuse for hemoglobin less than 8 g. Margarito Naqvi M.D. DR: Segundo JOB#: [id number] CC:
[2017-09-17] MEDS: Piperacillin/Tazobactam 3.375 GM in NS 110 ML IVPB SCH ×2 (05:54→14:00)
[2017-09-17 06:26] LABS: BASOPHILS % (AUTO) 0.4 % (0.0-2.0); EOSINOPHILS % (AUTO) 3.7 % (0.0-3.0); HEMATOCRIT 30.1 % (42.0-52.0); HEMOGLOBIN 9.9 G/DL (14.2-18.0); LYMPHOCYTES % (AUTO) 8.1 % (20.0-45.0); MEAN CORPUSCULAR VOLUME 97 FL (80-99); MONOCYTES % (AUTO) 3.9 % (1.0-10.0); NEUTROPHILS % (AUTO) 83.9 % (45.0-75.0); PLATELET COUNT 177 K/UL (150-450); RED BLOOD COUNT 3.11 M/UL (4.70-6.10); RED CELL DISTRIBUTION WIDTH 15.2 % (11.6-14.8); WHITE BLOOD COUNT 11.2 K/UL (4.8-10.8)
[2017-09-17 06:46] LABS: ANION GAP 13 mmol/L (5-15); BLOOD UREA NITROGEN 80 mg/dL (7-18); CALCIUM 6.9 MG/DL (8.5-10.1); CARBON DIOXIDE 19 MMOL/L (21-32); CHLORIDE 111 MMOL/L (98-107); CREATININE 4.1 MG/DL (0.55-1.30); SODIUM 143 MMOL/L (136-145)
[2017-09-17 08:13] LABS: PHOSPHORUS 5.1 MG/DL (2.5-4.9)
[2017-09-17] MEDS: Vitamin A&D Oint 2oz Tube TOPIC SCH ×2 (08:44→21:00)
[2017-09-17] MEDS: Pantoprazole Inj IVP SCH (08:44)
--- NOTE | 2017-09-17 10:09 | General Progress Note ---
Assessment/Plan Assessment/Plan IMPRESSION GIB respiratory failure pneumonia CKD/ARF anemia hypernatremia hypotension possible sepsis leukopenia PLAN monitor HH protonix IV GI evaluation for feeds IV antibiotics- noted ID evaluation- noted monitor labs for change still requiring pressors feeds per GI vent support and monitor ABG transfer to [place] with RN and RT monitor and avoid excessive hydration guarded Subjective Allergies: Coded Allergies: LISINOPRIL (Verified Allergy, Unknown, 09/13/17) [id number] REDUCTASE INHIBITOR (Verified Allergy, Unknown, 09/13/17) Subjective care noted remains on the ventilator poor LOC off pressors Objective Last 24 Hour Vital Signs Date Time Temp Pulse Resp B/P (MAP) Pulse Ox O2 Delivery O2 Flow Rate FiO2 09/17/17 09:10 84 27 40 09/17/17 08:30 83 22 107/50 99 Mechanical Ventilator 50 09/17/17 08:00 40 09/17/17 08:00 99.2 90 26 92/45 99 Mechanical Ventilator 50 09/17/17 07:30 84 34 40 09/17/17 07:30 89 21 104/42 99 Mechanical Ventilator 50 09/17/17 07:00 87 23 123/46 99 Mechanical Ventilator 50 09/17/17 05:30 75 23 133/45 99 Mechanical Ventilator 50 09/17/17 05:25 71 30 40 09/17/17 05:00 98.6 73 27 94/54 98 Mechanical Ventilator 50 09/17/17 04:30 74 26 105/50 98 Mechanical Ventilator 50 09/17/17 04:00 50 09/17/17 04:00 71 28 104/74 98 Mechanical Ventilator 50 09/17/17 04:00 71 09/17/17 03:30 82 27 114/52 100 Mechanical Ventilator 50 09/17/17 03:10 74 33 40 09/17/17 03:00 80 20 100/50 100 Mechanical Ventilator 50 09/17/17 02:30 75 21 113/54 99 Mechanical Ventilator 50 09/17/17 02:00 78 25 116/58 99 Mechanical Ventilator 50 09/17/17 01:30 65 27 96/49 99 Mechanical Ventilator 50 09/17/17 01:25 76 33 40 09/17/17 01:00 70 24 99/57 99 Mechanical Ventilator 50 09/17/17 00:37 110/54 09/17/17 00:30 70 20 110/54 99 Mechanical Ventilator 50 09/17/17 00:00 61 09/17/17 00:00 98.8 61 26 116/63 100 Mechanical Ventilator 50 09/17/17 00:00 50 09/16/17 23:30 66 24 109/59 100 Mechanical Ventilator 50 09/16/17 23:13 58 28 40 09/16/17 23:00 58 24 116/56 100 Mechanical Ventilator 50 09/16/17 22:30 52 22 80/60 100 Mechanical Ventilator 50 09/16/17 22:00 56 24 109/54 100 Mechanical Ventilator 50 09/16/17 21:30 60 27 109/55 100 Mechanical Ventilator 50 09/16/17 21:04 59 27 40 09/16/17 21:00 57 26 102/48 100 Mechanical Ventilator 50 09/16/17 20:30 69 14 90/46 98 Mechanical Ventilator 50 09/16/17 20:00 68 09/16/17 20:00 50 09/16/17 20:00 98.9 68 16 105/59 98 Mechanical Ventilator 50 09/16/17 19:30 65 23 115/52 97 Mechanical Ventilator 50 09/16/17 19:00 53 27 101/49 100 Mechanical Ventilator 50 09/16/17 19:00 101/49 09/16/17 18:56 66 30 40 09/16/17 18:30 67 27 106/56 98 Mechanical Ventilator 50 09/16/17 18:00 67 27 112/79 99 Mechanical Ventilator 50 09/16/17 18:00 112/79 09/16/17 17:30 98.8 62 26 105/49 97 Mechanical Ventilator 50 09/16/17 17:00 99.0 60 30 95/63 100 Mechanical Ventilator 50 09/16/17 17:00 95/63 09/16/17 16:45 54 24 40 09/16/17 16:30 43 27 95/62 100 Mechanical Ventilator 50 09/16/17 16:00 73 09/16/17 16:00 58 27 98/58 100 Mechanical Ventilator 50 09/16/17 16:00 95/62 09/16/17 16:00 50 09/16/17 15:37 97/63 09/16/17 15:30 55 27 97/63 100 Mechanical Ventilator 50 09/16/17 15:21 73 31 40 09/16/17 15:00 63 27 110/53 100 Mechanical Ventilator 50 09/16/17 15:00 105/58 09/16/17 14:30 58 27 111/53 100 Mechanical Ventilator 50 09/16/17 14:00 47 27 120/59 100 Mechanical Ventilator 50 09/16/17 14:00 107/56 09/16/17 13:30 68 27 119/79 100 Mechanical Ventilator 50 09/16/17 13:00 68 27 101/52 100 Mechanical Ventilator 50 09/16/17 13:00 101/52 09/16/17 12:51 75 40 40 09/16/17 12:30 69 27 123/41 100 Mechanical Ventilator 50 09/16/17 12:00 50 09/16/17 12:00 71 27 115/46 100 Mechanical Ventilator 50 09/16/17 12:00 114/56 09/16/17 12:00 79 09/16/17 11:30 69 33 99/45 100 Mechanical Ventilator 50 09/16/17 11:05 71 37 40 09/16/17 11:00 116/45 09/16/17 11:00 67 33 116/45 100 Mechanical Ventilator 50 09/16/17 10:30 70 28 98/44 100 Mechanical Ventilator 50 Intake and Output 09/16/17 09/17/17 19:00 07:00 Intake Total 2040.0 ml 2004.0 ml Output Total 485 ml 530 ml Balance 1555.0 ml 1474.0 ml Intake Oral 0 ml IV Total 2040.0 ml 1824.0 ml Tube Feeding 180 ml Output Urine Total 485 ml 530 ml Laboratory Tests 09/17/17 05:00: White Blood Count 11.2H, Red Blood Count 3.11L, Hemoglobin 9.9L, Hematocrit 30.1L, Mean Corpuscular Volume 97, Mean Corpuscular Hemoglobin 32.0H, Mean Corpuscular Hemoglobin Concent 33.0, Red Cell Distribution Width 15.2H, Platelet Count 177, Mean Platelet Volume 8.3, Neutrophils (%) (Auto) 83.9H, Lymphocytes (%) (Auto) 8.1L, Monocytes (%) (Auto) 3.9, Eosinophils (%) (Auto) 3.7H, Basophils (%) (Auto) 0.4, Sodium Level 143, Potassium Level 4.0, Chloride Level 111H, Carbon Dioxide Level 19L, Anion Gap 13, Blood Urea Nitrogen 80H, Creatinine 4.1H, Estimat Glomerular Filtration Rate , Glucose Level 72L, Calcium Level 6.9L, Phosphorus Level 5.1H, Thyroid Stimulating Hormone (TSH) 8.945H Height (Feet): 5 Height (Inches): 8.00 Weight (Pounds): 170 Objective WDWN ETT coarse breath sounds bilaterally without rhonchi or wheeze [id number] without MRG NABS nontender no HSM no CC withdrawn with poor LOC ÁNGEL LAO Sep 17, 2017 10:09
--- NOTE | 2017-09-17 19:43 | General Progress Note ---
Assessment/Plan Assessment/Plan 1. Leukopenia, potentially related to underlying sepsis, has currently improved , status post Neupogen. Hepatitis panel neg. --> Ultrasound of the abdomen has been completed, shows cholelithiasis, bilateral pleural effusion, and mild ascites. ==> improved s/p neupogen administration 2. Anemia secondary to chronic disease. 3. Anemia secondary to kidney disease. Continue to closely monitor. 4. Hyponatremia. 5. CKD. 6. Possible sepsis. I appreciate the consultation. Subjective Constitutional: Denies: no symptoms, chills, diaphoresis, fever, malaise, weakness, other HEENT: Denies: no symptoms, eye pain, blurred vision, tearing, double vision, ear pain, ear discharge, nose pain, nose congestion, throat pain, throat swelling, mouth pain, mouth swelling, other Cardiovascular: Denies: no symptoms, chest pain, edema, irregular heart rate, lightheadedness, palpitations, syncope, other Respiratory: Denies: no symptoms, cough, orthopnea, shortness of breath, SOB with excertion, SOB at rest, sputum, stridor, wheezing, other Genitourinary: Denies: no symptoms, burning, discharge, frequency, flank pain, hematuria, incontinence, pain, urgency, other Neurologic/Psychiatric: Denies: no symptoms, anxiety, depressed, emotional problems, headache, numbness, paresthesia, pre-existing deficit, seizure, tingling, tremors, weakness, other Endocrine: Reports: no symptoms Hematologic/Lymphatic: Reports: no symptoms Allergies: Coded Allergies: LISINOPRIL (Verified Allergy, Unknown, 09/13/17) [id number] REDUCTASE INHIBITOR (Verified Allergy, Unknown, 09/13/17) Subjective on the ventilator Objective Last 24 Hour Vital Signs Date Time Temp Pulse Resp B/P (MAP) Pulse Ox O2 Delivery O2 Flow Rate FiO2 09/17/17 19:00 84 20 96/48 98 Mechanical Ventilator 50 09/17/17 18:00 79 20 111/48 98 Mechanical Ventilator 50 09/17/17 17:11 100 32 40 09/17/17 17:00 90 20 124/43 98 Mechanical Ventilator 50 09/17/17 16:00 40 09/17/17 16:00 99.0 91 20 117/68 97 Mechanical Ventilator 50 09/17/17 16:00 87 09/17/17 15:30 86 20 101/51 98 Mechanical Ventilator 50 09/17/17 15:21 91 29 40 09/17/17 15:00 83 20 116/62 98 Mechanical Ventilator 50 09/17/17 14:30 96 20 110/57 98 Mechanical Ventilator 50 09/17/17 14:00 84 20 117/47 99 Mechanical Ventilator 50 09/17/17 13:00 95 21 104/48 99 Mechanical Ventilator 50 09/17/17 12:41 91 31 40 09/17/17 12:30 81 21 98/71 99 Mechanical Ventilator 50 09/17/17 12:00 40 09/17/17 12:00 80 09/17/17 12:00 99.2 82 23 113/53 99 Mechanical Ventilator 50 09/17/17 11:30 82 21 116/50 99 Mechanical Ventilator 50 09/17/17 11:08 72 27 40 09/17/17 11:00 82 22 112/58 99 Mechanical Ventilator 50 09/17/17 10:30 82 21 97/42 99 Mechanical Ventilator 50 09/17/17 10:00 82 21 97/42 99 Mechanical Ventilator 50 09/17/17 09:30 75 23 118/51 99 Mechanical Ventilator 50 09/17/17 09:10 84 27 40 09/17/17 09:00 79 22 104/50 99 Mechanical Ventilator 50 09/17/17 08:30 83 22 107/50 99 Mechanical Ventilator 50 09/17/17 08:00 40 09/17/17 08:00 84 09/17/17 08:00 99.2 90 26 92/45 99 Mechanical Ventilator 50 09/17/17 07:30 84 34 40 09/17/17 07:30 89 21 104/42 99 Mechanical Ventilator 50 09/17/17 07:00 87 23 123/46 99 Mechanical Ventilator 50 09/17/17 05:30 75 23 133/45 99 Mechanical Ventilator 50 09/17/17 05:25 71 30 40 09/17/17 05:00 98.6 73 27 94/54 98 Mechanical Ventilator 50 09/17/17 04:30 74 26 105/50 98 Mechanical Ventilator 50 09/17/17 04:00 50 09/17/17 04:00 71 28 104/74 98 Mechanical Ventilator 50 09/17/17 04:00 71 09/17/17 03:30 82 27 114/52 100 Mechanical Ventilator 50 09/17/17 03:10 74 33 40 09/17/17 03:00 80 20 100/50 100 Mechanical Ventilator 50 09/17/17 02:30 75 21 113/54 99 Mechanical Ventilator 50 09/17/17 02:00 78 25 116/58 99 Mechanical Ventilator 50 09/17/17 01:30 65 27 96/49 99 Mechanical Ventilator 50 09/17/17 01:25 76 33 40 09/17/17 01:00 70 24 99/57 99 Mechanical Ventilator 50 09/17/17 00:37 110/54 09/17/17 00:30 70 20 110/54 99 Mechanical Ventilator 50 09/17/17 00:00 61 09/17/17 00:00 98.8 61 26 116/63 100 Mechanical Ventilator 50 09/17/17 00:00 50 09/16/17 23:30 66 24 109/59 100 Mechanical Ventilator 50 09/16/17 23:13 58 28 40 09/16/17 23:00 58 24 116/56 100 Mechanical Ventilator 50 09/16/17 22:30 52 22 80/60 100 Mechanical Ventilator 50 09/16/17 22:00 56 24 109/54 100 Mechanical Ventilator 50 09/16/17 21:30 60 27 109/55 100 Mechanical Ventilator 50 09/16/17 21:04 59 27 40 09/16/17 21:00 57 26 102/48 100 Mechanical Ventilator 50 09/16/17 20:30 69 14 90/46 98 Mechanical Ventilator 50 09/16/17 20:00 68 09/16/17 20:00 50 09/16/17 20:00 98.9 68 16 105/59 98 Mechanical Ventilator 50 Intake and Output 09/16/17 09/17/17 19:00 07:00 Intake Total 2040.0 ml 2104.0 ml Output Total 485 ml 530 ml Balance 1555.0 ml 1574.0 ml Intake Oral 0 ml IV Total 2040.0 ml 1924.0 ml Tube Feeding 180 ml Output Urine Total 485 ml 530 ml Laboratory Tests 09/17/17 05:00: White Blood Count 11.2H, Red Blood Count 3.11L, Hemoglobin 9.9L, Hematocrit 30.1L, Mean Corpuscular Volume 97, Mean Corpuscular Hemoglobin 32.0H, Mean Corpuscular Hemoglobin Concent 33.0, Red Cell Distribution Width 15.2H, Platelet Count 177, Mean Platelet Volume 8.3, Neutrophils (%) (Auto) 83.9H, Lymphocytes (%) (Auto) 8.1L, Monocytes (%) (Auto) 3.9, Eosinophils (%) (Auto) 3.7H, Basophils (%) (Auto) 0.4, Sodium Level 143, Potassium Level 4.0, Chloride Level 111H, Carbon Dioxide Level 19L, Anion Gap 13, Blood Urea Nitrogen 80H, Creatinine 4.1H, Estimat Glomerular Filtration Rate , Glucose Level 72L, Calcium Level 6.9L, Phosphorus Level 5.1H, Thyroid Stimulating Hormone (TSH) 8.945H Height (Feet): 5 Height (Inches): 8.00 Weight (Pounds): 170 General Appearance: no apparent distress EENT: TMs normal Neck: supple Cardiovascular: no gallop/murmur Respiratory/Chest: no respiratory distress Abdomen: soft Extremities: normal range of motion Edema: 1+ Leg (L), 1+ Leg (R) Aditya Del Toro Sep 17, 2017 19:43
[2017-09-17] MEDS ORDERED: D5W 275ml ONE (22:29)
[2017-09-17] MEDS ORDERED: Tubing IV Secondary IV ONE ×2 (22:29)
[2017-09-17] MEDS ORDERED: 1/2 NS 1000ml IV ONE (22:29)
--- NOTE | 2017-09-17 23:27 | General Progress Note ---
Assessment/Plan Assessment/Plan Assessment - UGIB - sepsis / shock - anemia - Resp failure ENDOSCOPY (09/15/17) - moderate ulcerative esophagitis - no active bleeding Recommendations - follow labs - transfuse PRN - PPI BID - abx - supportive care - continue TF Subjective Allergies: Coded Allergies: LISINOPRIL (Verified Allergy, Unknown, 09/13/17) [id number] REDUCTASE INHIBITOR (Verified Allergy, Unknown, 09/13/17) Subjective d/w RN seen in am in ICU tolerating TF Objective Last 24 Hour Vital Signs Date Time Temp Pulse Resp B/P (MAP) Pulse Ox O2 Delivery O2 Flow Rate FiO2 09/17/17 22:00 88 28 119/41 97 Mechanical Ventilator 50 09/17/17 21:30 93 34 40 09/17/17 21:00 83 20 106/51 97 Mechanical Ventilator 50 09/17/17 20:00 78 09/17/17 20:00 98.6 84 20 106/46 98 Mechanical Ventilator 50 09/17/17 20:00 40 09/17/17 19:10 86 26 40 09/17/17 19:00 84 20 96/48 98 Mechanical Ventilator 50 09/17/17 18:00 79 20 111/48 98 Mechanical Ventilator 50 09/17/17 17:11 100 32 40 09/17/17 17:00 90 20 124/43 98 Mechanical Ventilator 50 09/17/17 16:00 40 09/17/17 16:00 99.0 91 20 117/68 97 Mechanical Ventilator 50 09/17/17 16:00 87 09/17/17 15:30 86 20 101/51 98 Mechanical Ventilator 50 09/17/17 15:21 91 29 40 09/17/17 15:00 83 20 116/62 98 Mechanical Ventilator 50 09/17/17 14:30 96 20 110/57 98 Mechanical Ventilator 50 09/17/17 14:00 84 20 117/47 99 Mechanical Ventilator 50 09/17/17 13:00 95 21 104/48 99 Mechanical Ventilator 50 09/17/17 12:41 91 31 40 09/17/17 12:30 81 21 98/71 99 Mechanical Ventilator 50 09/17/17 12:00 40 09/17/17 12:00 80 09/17/17 12:00 99.2 82 23 113/53 99 Mechanical Ventilator 50 09/17/17 11:30 82 21 116/50 99 Mechanical Ventilator 50 09/17/17 11:08 72 27 40 09/17/17 11:00 82 22 112/58 99 Mechanical Ventilator 50 09/17/17 10:30 82 21 97/42 99 Mechanical Ventilator 50 09/17/17 10:00 82 21 97/42 99 Mechanical Ventilator 50 09/17/17 09:30 75 23 118/51 99 Mechanical Ventilator 50 09/17/17 09:10 84 27 40 09/17/17 09:00 79 22 104/50 99 Mechanical Ventilator 50 09/17/17 08:30 83 22 107/50 99 Mechanical Ventilator 50 09/17/17 08:00 40 09/17/17 08:00 84 09/17/17 08:00 99.2 90 26 92/45 99 Mechanical Ventilator 50 09/17/17 07:30 84 34 40 09/17/17 07:30 89 21 104/42 99 Mechanical Ventilator 50 09/17/17 07:00 87 23 123/46 99 Mechanical Ventilator 50 09/17/17 05:30 75 23 133/45 99 Mechanical Ventilator 50 09/17/17 05:25 71 30 40 09/17/17 05:00 98.6 73 27 94/54 98 Mechanical Ventilator 50 09/17/17 04:30 74 26 105/50 98 Mechanical Ventilator 50 09/17/17 04:00 50 09/17/17 04:00 71 28 104/74 98 Mechanical Ventilator 50 09/17/17 04:00 71 09/17/17 03:30 82 27 114/52 100 Mechanical Ventilator 50 09/17/17 03:10 74 33 40 09/17/17 03:00 80 20 100/50 100 Mechanical Ventilator 50 09/17/17 02:30 75 21 113/54 99 Mechanical Ventilator 50 09/17/17 02:00 78 25 116/58 99 Mechanical Ventilator 50 09/17/17 01:30 65 27 96/49 99 Mechanical Ventilator 50 09/17/17 01:25 76 33 40 09/17/17 01:00 70 24 99/57 99 Mechanical Ventilator 50 09/17/17 00:37 110/54 09/17/17 00:30 70 20 110/54 99 Mechanical Ventilator 50 09/17/17 00:00 61 09/17/17 00:00 98.8 61 26 116/63 100 Mechanical Ventilator 50 09/17/17 00:00 50 09/16/17 23:30 66 24 109/59 100 Mechanical Ventilator 50 Intake and Output 09/16/17 09/17/17 19:00 07:00 Intake Total 2040.0 ml 2104.0 ml Output Total 485 ml 530 ml Balance 1555.0 ml 1574.0 ml Intake Oral 0 ml IV Total 2040.0 ml 1924.0 ml Tube Feeding 180 ml Output Urine Total 485 ml 530 ml Laboratory Tests 09/17/17 05:00: White Blood Count 11.2H, Red Blood Count 3.11L, Hemoglobin 9.9L, Hematocrit 30.1L, Mean Corpuscular Volume 97, Mean Corpuscular Hemoglobin 32.0H, Mean Corpuscular Hemoglobin Concent 33.0, Red Cell Distribution Width 15.2H, Platelet Count 177, Mean Platelet Volume 8.3, Neutrophils (%) (Auto) 83.9H, Lymphocytes (%) (Auto) 8.1L, Monocytes (%) (Auto) 3.9, Eosinophils (%) (Auto) 3.7H, Basophils (%) (Auto) 0.4, Sodium Level 143, Potassium Level 4.0, Chloride Level 111H, Carbon Dioxide Level 19L, Anion Gap 13, Blood Urea Nitrogen 80H, Creatinine 4.1H, Estimat Glomerular Filtration Rate , Glucose Level 72L, Calcium Level 6.9L, Phosphorus Level 5.1H, Thyroid Stimulating Hormone (TSH) 8.945H Height (Feet): 5 Height (Inches): 8.00 Weight (Pounds): 170 Objective confused intubated NCAT supple CTA RRR soft NT ND (+) contractures SAJI FREY Sep 17, 2017 23:27
--- NOTE | 2017-09-18 02:00 | Progress Note ---
DATE: 09/17/2017 CARDIOLOGY PROGRESS NOTE SUBJECTIVE: The patient's condition is largely unchanged. He remains on ventilator support. He continues on antimicrobials. Blood pressure is marginal. He is off pressors, however. OBJECTIVE: CHEST: Coarse breath sounds. Scattered rhonchi. HEART: Regular rhythm and rate. Normal S1, S2. ABDOMEN: Soft. EXTREMITIES: Trace edema. LABORATORY DATA: White count 11 and hemoglobin 10. TSH 8.9. BUN 80 and creatinine 12.1. IMPRESSION: 1. Respiratory failure. 2. Sepsis with recovered shock. 3. Status post gastrointestinal bleed. 4. Hyponatremia. 5. Hypovolemia. 6. Healthcare-acquired pneumonia. 7. Acute myocardial ischemia. 8. Paroxysmal sinus bradycardia with underlying sinus node disease. PLAN: 1. Continue hydration. 2. Proton-pump inhibitor. 3. Antimicrobials. 4. Ventilator support. 5. No indication for permanent pacemaker. 6. Atropine at bedside. 7. Monitor hemoglobin and transfuse if less than 8 g. 8. Remains critical and guarded. Margarito Naqvi M.D. DR: Miladys JOB#: [id number] CC:
--- NOTE | 2017-09-18 15:48 | Discharge Summary ---
Discharge Summary Hospital Course Date of Admission Sep 13, 2017 at 18:06 Date of Discharge Sep 17, 2017 at 22:30 Admitting Diagnosis hypoxia HPI Mekhi AshutoshtaranJr is a 82 year old male who was admitted on Sep 13, 2017 at 18: 06 for Hypoxia Hospital Course [id number] Discharge Discharge Disposition Patient was discharged to [facility] Discharge Diagnoses: Zakiya Garcia NP Sep 18, 2017 15:48
--- NOTE | 2017-09-19 00:15 | Discharge Summary 2 SIG ---
DATE OF ADMISSION: 09/13/2017 DATE OF DISCHARGE: 09/17/2017 CONSULTANTS: 1. Margarito Naqvi M.D. 2. Jovita Anthony M.D. 3. Aditya Del Toro M.D. BRIEF HOSPITAL COURSE: The patient is an 82-year-old male with dementia, presented with GI bleed. The patient was having coffee-grounds emesis and O2 saturation was down to 80s at the [facility]. He has a medical history significant for anemia, diabetes, chronic kidney disease, dementia, and urinary retention. On evaluation at ED, the patient was in respiratory distress and was orally intubated. A triple lumen catheter was inserted to the left internal jugular. WBC was 3. Hemoglobin was 10. Dr. Anthony was consulted for evaluation of GI bleed. He was given IV fluids and proton pump inhibitors. He will eventually need endoscopy once stabilized. Dr. Del Toro was consulted for evaluation of severe leukopenia. WBC went down to 1. Leukopenia was assessed to be secondary to underlying sepsis and was given Neupogen. He had elevated BUN and creatinine. The patient has kidney failure. He underwent EGD on 09/15/2017. The patient had moderate ulcerative esophagitis. There was no active bleeding seen. He was continued on supportive care and tube feeding was restarted. He received two units packed RBC blood transfusion. He continued to require IV pressors. Troponin level was elevated and monitored rhythm showed episodes of sinus bradycardia. Leukopenia improved post Neupogen administration. He was subsequently transferred to a contracted facility. FINAL DIAGNOSES: 1. Acute respiratory failure requiring intubation. 2. Sepsis with recovered shock. 3. Anemia possibly gastrointestinal bleed. 4. Acute anemia requiring blood transfusion 5. Hypovolemia. 6. Healthcare-acquired pneumonia. 7. Acute myocardial infarction. 8. Paroxysmal sinus bradycardia. 9. Moderate ulcerative esophagitis. 10. Leukopenia secondary to underlying sepsis. 11. Anemia secondary to chronic disease. 12. Anemia secondary to kidney disease. 13. Acute renal failure on chronic kidney disease. DISPOSITION: The patient was transferred to [facility]. Huang Springer M.D. I have been assigned to dictate discharge summary on this account and I was not involved in the patient's management. Zakiya Garcia N.P. DR: SHERRY JOB#: [id number] CC: MAXI
--- NOTE | 2017-09-24 13:01 | Operative Note - Dictated ---
DATE OF OPERATION: 09/15/2017 GASTROENTEROLOGY PROCEDURE REPORT PROCEDURE: Upper gastrointestinal endoscopy. SURGEON: Jovita Anthony M.D. ANESTHESIA: Please see the separate anesthesiologist notes for details. PRE-ENDOSCOPIC DIAGNOSIS: Upper gastrointestinal bleeding. POST-ENDOSCOPIC DIAGNOSIS: Ulcerative esophagitis. PROCEDURE: The procedure, its risks, indications, alternatives, and possible complications were explained. An informed consent was obtained. The patient was then sedated in the left lateral decubitus position. A diagnostic upper endoscope was introduced through the oropharynx and advanced to the duodenum. The endoscope was then gradually withdrawn and mucosa examined carefully. Examination of the upper gastric mucosa revealed ulcerative esophagitis. There was no active bleeding. The remainder of the examination was unremarkable. The endoscope was removed. The patient was sent to recovery in good condition. COMPLICATIONS: None. RECOMMENDATIONS: 1. Reflux precautions. 2. Proton pump inhibitor. 3. Resume tube feedings. 4. We will follow up tomorrow. Thank you for asking me to participate in the care of this patient. Jovita Anthony M.D. DR: DIDI JOB#: [id number] CC:
--- NOTE | 2017-09-26 16:19 | Cardiology Report ---
APPROVED REPORT EKG Measurement Heart [id number] 140P24 [id number] Sinus bradycardia Low voltage QRS Borderline ECG
== END 2017-09-17 22:30 | disposition short-term general hospital (02) | DRG 870 ==
LOC: EDBD 15:32 → EMR 15:40 → EDBEDREQSVC 17:43 → EDBEDREQ 17:43 → ICU 18:06 → EDBEDREQ 18:21
DX: A41.9 Sepsis, unspecified organism (principal); J96.00 Acute respiratory failure, unspecified whether with hypoxia or hypercapnia; J18.9 Pneumonia, unspecified organism; R65.21 Severe sepsis with septic shock; E43 Unspecified severe protein-calorie malnutrition; N17.9 Acute kidney failure, unspecified; E87.0 Hyperosmolality and hypernatremia; I95.9 Hypotension, unspecified; F03.90 Unspecified dementia, unspecified severity, without behavioral disturbance, psychotic disturbance, mood disturbance, and anxiety; I13.10 Hypertensive heart and chronic kidney disease without heart failure, with stage 1 through stage 4 chronic kidney disease, or unspecified chronic kidney disease; E87.1 Hypo-osmolality and hyponatremia; K22.10 Ulcer of esophagus without bleeding; K92.2 Gastrointestinal hemorrhage, unspecified; E11.22 Type 2 diabetes mellitus with diabetic chronic kidney disease; N18.9 Chronic kidney disease, unspecified; K21.0 Gastro-esophageal reflux disease with esophagitis; R00.1 Bradycardia, unspecified; E86.0 Dehydration; E11.21 Type 2 diabetes mellitus with diabetic nephropathy; N40.0 Benign prostatic hyperplasia without lower urinary tract symptoms; I25.9 Chronic ischemic heart disease, unspecified; Z68.25 Body mass index [BMI] 25.0-25.9, adult
CPT/HCPCS: 36415; 36600; 71010; 74018; 74176; 76700; 80048; 80053; 80202; 82270; 82550; 82553; 82803; 83605; 84100; 84443; 84484; 85025; 85610; 86703; 86705; 86709; 86803; 86850; 86900; 86901; 86920; 87040; 87070; 87081; 87181; 87205; 87340; 93005; 93306; 94002; 94003; 94150; 99291; J0171; J2370